=== PATIENT | female | born 1990 ===

== ENCOUNTER 2018-07-11 13:18 | Inpatient (IN) | payer MEDICAID, OTHER ==
[2018-07-11] MEDS ORDERED: Sodium Chloride 0.9% 1,000 ML IV SCH (14:30)
[2018-07-11] MEDS ORDERED: Sodium Chloride 0.9% 1,000 ML ONE (14:37)
[2018-07-11 14:45] LABS: BASO % 0.3 % (0.0-2.0); EOS # 0.1 K/uL (0.0-0.7); EOS % 1.9 % (0.0-4.0); HEMOGLOBIN 13.3 g/dL (11.0-16.0); LYMPH % 28.3 % (20.0-40.0); MEAN CORPUSCULAR HEMOGLOBIN 28.1 pg (27.0-31.0); MEAN CORPUSCULAR HGB CONC 33.8 g/dL (33.0-37.0); MEAN PLATELET VOLUME 7.4 fL (7.2-11.7); MONO # 0.4 K/uL (0.0-0.8); MONO % 6.4 % (0.0-10.0); NEUT # 4.4 K/uL (1.8-7.0); NEUT % 63.1 % (50.0-75.0); RBC 4.73 Mil/uL (3.80-5.20); RED CELL DISTRIBUTION WIDTH 12.8 % (11.5-14.5); WHITE BLOOD COUNT 6.9 K/uL (4.8-10.8)
[2018-07-11 14:59] LABS: URINE BILIRUBIN NEGATIVE (NEGATIVE); URINE BLOOD 2+ (NEGATIVE); URINE CLARITY Clear (Clear); URINE COLOR Yellow (YELLOW); URINE GLUCOSE (UA) NORMAL (Normal); URINE LEUKOCYTE ESTERASE TRACE Leu/uL (Negative); URINE PROTEIN NEGATIVE (NEGATIVE); URINE UROBILINOGEN NORMAL mg/dL (0.2-1.0)
[2018-07-11 15:00] LABS: INR 1.2; PROTHROMBIN TIME 12.7 SECONDS (9.7-12.2)
[2018-07-11 15:06] LABS: ALB/GLOB RATIO 1.4 (1.0-2.1); ALT/SGPT 696 U/L (9-52); BLOOD UREA NITROGEN 11 mg/dL (7-17); CALCIUM 9.9 mg/dl (8.6-10.4); GFR NON-AFRICAN AMERICAN > 60; LIPASE 146 U/L (23-300)
[2018-07-11 15:13] LABS: SQUAMOUS EPITHIAL 2 /hpf (0-5)
[2018-07-11 15:33] LABS: AST/SGOT 897 U/L (14-36)
--- NOTE | 2018-07-11 16:33 | US ---
HISTORY: epigastric pain COMPARISON: None available TECHNIQUE: Sonographic evaluation of the abdomen. FINDINGS: LIVER: Measures 12.6 cm in sagittal dimension and appears within normal limits of size, shape, and echotexture. No focal hepatic mass identified. The main portal vein appears patent with normal directional flow. No intrahepatic bile duct dilatation. GALLBLADDER: No gallstones. No gallbladder wall thickening. Negative sonographic Garcia's sign as assessed by the cloth bleaching supervisor. COMMON BILE DUCT: Measures 5 mm. PANCREAS: Not well visualized. RIGHT KIDNEY: Measures 10.1 x 4.0 x 4.3 cm. No obstructing calculus or hydronephrosis identified. LEFT KIDNEY: Measures 9.4 x 4.6 x 4.7 cm. No obstructing calculus or hydronephrosis identified. SPLEEN: Measures approximately 9.7 cm. AORTA: Limited views appear unremarkable. IVC: Limited views appear unremarkable. OTHER FINDINGS: None. IMPRESSION: Cholelithiasis. Gallbladder sludge. Otherwise unremarkable study as above.
--- NOTE | 2018-07-11 16:55 | C.PDOC ---
Time Seen by Provider: 07/11/18 14:07 Chief Complaint (Nursing): Abdominal Pain Past Medical History Vital Signs: Last Vital Signs Temp 98.2 F 07/11/18 13:35 Pulse 86 07/11/18 13:35 Resp 18 07/11/18 13:35 BP 115/76 07/11/18 13:35 Pulse Ox 98 07/11/18 13:35 - Medical History PMH: Asthma, Migraine Surgical History: Appendectomy, Tonsillectomy Family History: States: Unknown Family Hx - Social History Hx Alcohol Use: Yes Hx Substance Use: No - Immunization History Hx Tetanus Toxoid Vaccination: No Hx Influenza Vaccination: No Hx Pneumococcal Vaccination: No ED Course And Treatment - Laboratory Results Result Diagrams: 07/11/18 14:40 07/11/18 14:40 O2 Sat by Pulse Oximetry: 98 Disposition - Disposition
--- NOTE | 2018-07-11 17:13 | C.PDOC ---
History Of Present Illness 28 y/o female, w/PMHx of migraines and asthma, presents to the ER complaining of intermittent epigastric abdominal pain x 3 months which has become progressively worse over the past 1 month. Patient notes that the pain radiates throughout the abdomen and the back, the pain is worse with urination.She had multiple episodes of nom bilious non bloody vomiting. Patient states that she saw her PMD 1 month ago who prescribed her Carafate without relief. Patient reports that she has also taken OTC Antacids with no relief. She notes that she has poor appetite, unintentional weight loss, and chills, and lightheadedness. PMD: Josh Oliva Time Seen by Provider: 07/11/18 14:07 Chief Complaint (Nursing): Abdominal Pain History Per: Patient History/Exam Limitations: no limitations Onset/Duration Of Symptoms: Days Current Symptoms Are (Timing): Still Present Severity: Moderate Past Medical History Reviewed: Historical Data, Nursing Documentation, Vital Signs Vital Signs: Last Vital Signs Temp 98.2 F 07/11/18 20:57 Pulse 54 L 07/11/18 20:57 Resp 16 07/11/18 20:57 BP 120/75 07/11/18 20:57 Pulse Ox 98 07/11/18 22:49 - Medical History PMH: Asthma, Migraine Surgical History: Appendectomy, Tonsillectomy Family History: States: Hypertension, Other Other Family History: Gallbladder disease - Social History Hx Alcohol Use: Yes (occasional) Hx Substance Use: No - Immunization History Hx Tetanus Toxoid Vaccination: No Hx Influenza Vaccination: No Hx Pneumococcal Vaccination: No Review Of Systems Except As Marked, All Systems Reviewed And Found Negative. Constitutional: Positive for: Chills, Weight loss. Negative for: Fever Gastrointestinal: Positive for: Abdominal Pain. Negative for: Nausea, Vomiting Physical Exam - Physical Exam Appears: Non-toxic, Other (mild pain) Skin: Warm, Dry, Other (pallor) Head: Atraumatic, Normacephalic Eye(s): bilateral: Normal Inspection Nose: Normal Oral Mucosa: Other (tacky) Throat: No Erythema, No Exudate Neck: Normal ROM, Supple Lymphatic: No Adenopathy Chest: Symmetrical Cardiovascular: Rhythm Regular, No Murmur Respiratory: Normal Breath Sounds, No Rales, No Rhonchi, No Wheezing Gastrointestinal/Abdominal: Soft, Tenderness (epigastric tenderness), No Mass, No Distention, No Guarding, No Rebound Back: CVA Tenderness (right-sided CVA tenderness) Extremity: Normal ROM, No Capillary Refill Neurological/Psych: Oriented x3, Normal Speech ED Course And Treatment - Laboratory Results Result Diagrams: 07/11/18 14:40 07/11/18 21:26 Interpretation Of Abnormal: Marked derangements in LFTs with elevated bilirubin O2 Sat by Pulse Oximetry: 98 (RA) Pulse Ox Interpretation: Normal Progress Note: Accession No. : [id number]. Patient Name / ID : ELLIE WICK / [id number]. Exam Date : 07/11/2018 15:55:10 ( Approved ). Study Comment : Sex / Age : F / 28Y. Creator : Dunia Jean MD. Dictator : Dunia Jean MD. Molasses Preparer : Applied Biology Professor : Dunia Jean MD. Approver2 : Report Date : 07/11/2018 16:31:55. My Comment : . HISTORY: epigastric pain. COMPARISON: None available. TECHNIQUE: Sonographic evaluation of the abdomen. FINDINGS: LIVER: Measures 12.6 cm in sagittal dimension and appears within normal limits of size, shape, and echotexture. No focal hepatic mass identified. The main portal vein appears patent with normal directional flow. No intrahepatic bile duct dilatation. GALLBLADDER: No gallstones. No gallbladder wall thickening. Negative sonographic Garcia's sign as assessed by the sash finisher. COMMON BILE DUCT: Measures 5 mm. PANCREAS: Not well visualized. RIGHT KIDNEY: Measures 10.1 x 4.0 x 4.3 cm. No obstructing calculus or hydronephrosis identified. LEFT KIDNEY: Measures 9.4 x 4.6 x 4.7 cm. No obstructing calculus or hydronephrosis identified. SPLEEN: Measures approximately 9.7 cm. AORTA: Limited views appear unremarkable. IVC : Limited views appear unremarkable. OTHER FINDINGS: None. IMPRESSION: Cholelithiasis. Gallbladder sludge. Otherwise unremarkable study as above. Medical Decision Making Medical Decision Making: Impression: Abdominal Pain vs. Gastritis vs. Peptic Ulcer Disease vs. gallbladder disease vs reflu vs enteritis Plan: --Labs --UA --CT- Abd & Pelv. --Morphine IV --Zofran IV 1700 DW pt findings On reeval pt continues to have severe pain. MICHEAL GI fellow for Dr Trejo. Will follow inpatient. MICHEAL resident services coordinator for Surgery, will also follow as inpatient. Dr Matamoros Med Service made aware for hospitalization Disposition Counseled Patient/Family Regarding: Studies Performed, Diagnosis - Disposition Disposition: HOSPITALIZED Disposition Time: 17:30 Condition: FAIR - POA Present On Arrival: None - Clinical Impression Clinical Impression: Cholelithiasis, Hyperbilirubinemia, Transaminitis, Abdominal pain - Scribe Statement The provider has reviewed the documentation as recorded by the Scribe Guille Aguayo
[2018-07-11] MEDS ORDERED: Morphine 4 MG/ML VIAL ONE (17:29)
[2018-07-11] MEDS ORDERED: Dextrose 5%/0.9% NS 1,000 ML IV ONE (17:35)
[2018-07-11] MEDS: Dextrose 5%/0.9% NS 1,000 ML IV SCH (17:36)
--- NOTE | 2018-07-11 18:50 | CP.PCM.CON ---
<Mary Ennis - Last Filed: 07/11/18 19:28> History of Present Illness - History of Present Illness History of Present Illness: Surgical team consulted for cholelithiasis 28yo female with history of asthma, migraine, and suspected gastritis, presents with abdominal pain in epigastrium. Patient states that she was showering when she began to experience severe epigastric abdominal pain radiating to the back. She describes the back pain as feeling like it is on fire. Three months ago she began to experience abdominal pain and saw her primary physician who suspected gastritis, due to a family history of gastritis. She was advised to take antacids which helped for a brief time, but then became ineffective. She then received a script for sucralfate from her physician and has been taking that for the past month. In the time since she started having abdominal discomfort, she has been having odorous burps and vomiting frequently (nonbloody, nonbillious). She complains of tenderness in her chest that "feels like it is bruised" from her vomiting. In this episode, she has been feeling nauseous, but has not vomited. Her symptoms used to occur after fatty meals, so (as directed by her physician) she stopped eating those foods, but in the past month she has been experiencing this abdominal pain every other day. Patient admits to chills , feeling bloated, nausea, burping, pain on deep inspiration, chronic urinary frequency, as well as leg weakness when her back pain comes on. She denies fever , chest pain, dyspnea. Abd US: Cholelithiasis and sludge, CBD of 5mm PMH: Asthma, migraine PSH: tonsilectomy, appendicitis Family Hx: Gallstones, HTN, gastritis, breast cancer Meds: Sucralfate, zantac, TUMs Allergies: seasonal Review of Systems - Review of Systems All systems: reviewed and no additional remarkable complaints except (As per HPI ) Past Patient History - Past Social History Smoking Status: Never Smoked - PULMONARY Hx Asthma: Yes - NEUROLOGICAL Hx Migraine: Yes - PSYCHIATRIC Hx Substance Use: No - SURGICAL HISTORY Hx Appendectomy: Yes Hx Tonsillectomy: Yes - ANESTHESIA Hx Anesthesia: Yes Hx Anesthesia Reactions: No Meds Allergies/Adverse Reactions: Allergies Allergy/AdvReac Type Severity Reaction Status Date / Time No Known Allergies Allergy Verified 09/12/16 03:44 - Medications Medications: Current Medications Sodium Chloride (Sodium Chloride 0.9%) 1,000 mls @ 100 mls/hr IV .Q10H [facility] Last Admin: 07/11/18 14:55 Dose: 100 mls/hr Dextrose/Sodium Chloride (Dextrose 5%/0.9% Ns 1000 Ml) 1,000 mls @ 150 mls/hr IV .Q6H40M [facility] Last Admin: 07/11/18 17:36 Dose: 150 mls/hr Physical Exam - Constitutional Appears: No Acute Distress - Head Exam Head Exam: ATRAUMATIC, NORMAL INSPECTION, NORMOCEPHALIC - Eye Exam Eye Exam: Normal appearance Additional comments: No scleral icterus - Respiratory Exam Respiratory Exam: Clear to Auscultation Bilateral, NORMAL BREATHING PATTERN. absent: Rhonchi, Wheezes, Stridor - Cardiovascular Exam Cardiovascular Exam: REGULAR RHYTHM, +S1, +S2 - GI/Abdominal Exam GI & Abdominal Exam: Normal Bowel Sounds, Soft, Tenderness Additional comments: Tenderness on deep palpation with deep inspiration in RUQ Tenderness in LUQ scar from previous appendectomy - Back Exam Back exam: paraspinal tenderness, tenderness - Skin Skin Exam: Dry, Intact, Normal Color, Warm Results - Vital Signs Recent Vital Signs: Last Vital Signs Temp 98.2 F 07/11/18 13:35 Pulse 69 07/11/18 17:16 Resp 20 07/11/18 17:16 BP 134/84 07/11/18 17:16 Pulse Ox 98 07/11/18 17:30 - Labs Result Diagrams: 07/11/18 14:40 07/11/18 14:40 Labs: Laboratory Results - last 24 hr 07/11/18 07/11/18 07/11/18 14:40 14:40 14:40 WBC 6.9 RBC 4.73 Hgb 13.3 Hct 39.3 MCV 83.0 MCH 28.1 MCHC 33.8 RDW 12.8 Plt Count 377 MPV 7.4 Neut % (Auto) 63.1 Lymph % (Auto) 28.3 [place] % (Auto) 6.4 Eos % (Auto) 1.9 Baso % (Auto) 0.3 Neut # (Auto) 4.4 Lymph # (Auto) 2.0 [place] # (Auto) 0.4 Eos # (Auto) 0.1 Baso # (Auto) 0.0 PT 12.7 H INR 1.2 APTT 31 Sodium 144 Potassium 3.7 Chloride 101 Carbon Dioxide 29 Anion Gap 18 BUN 11 Creatinine 0.6 L Est GFR ( Amer) > 60 Est GFR (Non-Af Amer) > 60 Random Glucose 95 Calcium 9.9 Total Bilirubin 3.1 H AST 897 H ALT 696 H Alkaline Phosphatase 131 H Lactate Dehydrogenase 2692 H Total Protein 8.5 H Albumin 5.0 Globulin 3.5 Albumin/Globulin Ratio 1.4 Lipase 146 Urine Color Urine Clarity Urine pH Ur Specific [place] Urine Protein Urine Glucose (UA) Urine Ketones Urine Blood Urine Nitrate Urine Bilirubin Urine Urobilinogen Ur Leukocyte Esterase Urine WBC (Auto) Urine RBC (Auto) Ur Squamous Epith Cells 07/11/18 14:48 WBC RBC Hgb Hct MCV MCH MCHC RDW Plt Count MPV Neut % (Auto) Lymph % (Auto) [place] % (Auto) Eos % (Auto) Baso % (Auto) Neut # (Auto) Lymph # (Auto) [place] # (Auto) Eos # (Auto) Baso # (Auto) PT INR APTT Sodium Potassium Chloride Carbon Dioxide Anion Gap BUN Creatinine Est GFR ( Amer) Est GFR (Non-Af Amer) Random Glucose Calcium Total Bilirubin AST ALT Alkaline Phosphatase Lactate Dehydrogenase Total Protein Albumin Globulin Albumin/Globulin Ratio Lipase Urine Color Yellow Urine Clarity Clear Urine pH 7.0 Ur Specific [place] 1.010 Urine Protein Negative Urine Glucose (UA) Normal Urine Ketones Negative Urine Blood 2+ H Urine Nitrate Negative Urine Bilirubin Negative Urine Urobilinogen Normal Ur Leukocyte Esterase Trace Urine WBC (Auto) 2 Urine RBC (Auto) 10 H Ur Squamous Epith Cells 2 Assessment & Plan - Assessment and Plan (Free Text) Assessment: 28yo female with cholelithiasis and possible choledocolithiasis Plan: Monitor LFTs Clear liquid diet IVF Nausea control Pain control Obtain consent for Lap Rosa DVT/GI prophylaxis <Gerald Sena - Last Filed: 07/16/18 13:55> Results - Vital Signs Recent Vital Signs: Last Vital Signs Temp 98.1 F 07/15/18 15:29 Pulse 91 H 07/15/18 15:29 Resp 18 07/15/18 15:29 BP 122/78 07/15/18 15:29 Pulse Ox 100 07/15/18 15:29 - Labs Result Diagrams: 07/15/18 10:38 07/15/18 10:38 Attending/Attestation - Attestation I have personally seen and examined this patient.: Yes I have fully participated in the care of the patient.: Yes I have reviewed all pertinent clinical information: Yes Notes (Text): Pt was seen and examined at bedside Agree with above note and assessment Pt with RUQ pain and nausea Abdomen : soft, tender in RUQ Labs and radiology reviewed Ass: Acute Cholecystitis with Leucocytosis Plan : MRCP GI consult for ERCP Repeat LFTs NPO, IVF IV antibiotics Plan d.w pt in detail Risk and benefit explained in detail.
[2018-07-11 21:52] LABS: ALB/GLOB RATIO 1.5 (1.0-2.1); ALBUMIN 4.1 g/dL (3.5-5.0); ALT/SGPT 592 U/L (9-52); AST/SGOT 585 U/L (14-36); BLOOD UREA NITROGEN 9 mg/dL (7-17); CALCIUM 8.8 mg/dl (8.6-10.4); GFR NON-AFRICAN AMERICAN > 60
--- NOTE | 2018-07-11 23:57 | CP.PCM.HP ---
Past Patient History - Past Social History Smoking Status: Never Smoked - PULMONARY Hx Asthma: Yes - NEUROLOGICAL Hx Migraine: Yes - PSYCHIATRIC Hx Substance Use: No - SURGICAL HISTORY Hx Appendectomy: Yes Hx Tonsillectomy: Yes - ANESTHESIA Hx Anesthesia: Yes Hx Anesthesia Reactions: No Meds Allergies/Adverse Reactions: Allergies Allergy/AdvReac Type Severity Reaction Status Date / Time No Known Allergies Allergy Verified 09/12/16 03:44 Results - Vital Signs Recent Vital Signs: Last Vital Signs Temp 98.2 F 07/11/18 23:28 Pulse 59 L 07/11/18 23:28 Resp 14 07/11/18 23:28 BP 112/72 07/11/18 23:28 Pulse Ox 98 07/11/18 23:28 - Labs Result Diagrams: 07/11/18 14:40 07/11/18 21:26 Labs: Laboratory Results - last 24 hr 07/11/18 07/11/18 07/11/18 14:40 14:40 14:40 WBC 6.9 RBC 4.73 Hgb 13.3 Hct 39.3 MCV 83.0 MCH 28.1 MCHC 33.8 RDW 12.8 Plt Count 377 MPV 7.4 Neut % (Auto) 63.1 Lymph % (Auto) 28.3 [place] % (Auto) 6.4 Eos % (Auto) 1.9 Baso % (Auto) 0.3 Neut # (Auto) 4.4 Lymph # (Auto) 2.0 [place] # (Auto) 0.4 Eos # (Auto) 0.1 Baso # (Auto) 0.0 PT 12.7 H INR 1.2 APTT 31 Sodium 144 Potassium 3.7 Chloride 101 Carbon Dioxide 29 Anion Gap 18 BUN 11 Creatinine 0.6 L Est GFR ( Amer) > 60 Est GFR (Non-Af Amer) > 60 Random Glucose 95 Calcium 9.9 Total Bilirubin 3.1 H AST 897 H ALT 696 H Alkaline Phosphatase 131 H Lactate Dehydrogenase 2692 H Total Protein 8.5 H Albumin 5.0 Globulin 3.5 Albumin/Globulin Ratio 1.4 Lipase 146 Urine Color Urine Clarity Urine pH Ur Specific [place] Urine Protein Urine Glucose (UA) Urine Ketones Urine Blood Urine Nitrate Urine Bilirubin Urine Urobilinogen Ur Leukocyte Esterase Urine WBC (Auto) Urine RBC (Auto) Ur Squamous Epith Cells 07/11/18 07/11/18 14:48 21:26 WBC RBC Hgb Hct MCV MCH MCHC RDW Plt Count MPV Neut % (Auto) Lymph % (Auto) [place] % (Auto) Eos % (Auto) Baso % (Auto) Neut # (Auto) Lymph # (Auto) [place] # (Auto) Eos # (Auto) Baso # (Auto) PT INR APTT Sodium 140 Potassium 3.6 Chloride 106 Carbon Dioxide 25 Anion Gap 13 BUN 9 Creatinine 0.6 L Est GFR ( Amer) > 60 Est GFR (Non-Af Amer) > 60 Random Glucose 83 Calcium 8.8 Total Bilirubin 3.0 H AST 585 H D ALT 592 H Alkaline Phosphatase 135 H Lactate Dehydrogenase Total Protein 6.9 Albumin 4.1 Globulin 2.8 Albumin/Globulin Ratio 1.5 Lipase Urine Color Yellow Urine Clarity Clear Urine pH 7.0 Ur Specific [place] 1.010 Urine Protein Negative Urine Glucose (UA) Normal Urine Ketones Negative Urine Blood 2+ H Urine Nitrate Negative Urine Bilirubin Negative Urine Urobilinogen Normal Ur Leukocyte Esterase Trace Urine WBC (Auto) 2 Urine RBC (Auto) 10 H Ur Squamous Epith Cells 2
[2018-07-12] MEDS: Dextrose 5%/0.9% NS 1,000 ML IV SCH ×4 (05:48→22:23)
[2018-07-12] MEDS ORDERED: metroNIDAZOLE IV 500 mg/100 ml 500 MG/100 ML BAG IVPB SCH (06:00)
--- NOTE | 2018-07-12 07:32 | CP.PCM.PN ---
Subjective - Date & Time of Evaluation Date of Evaluation: 07/12/18 Time of Evaluation: 09:00 - Subjective Subjective: Progress Note for Dr. Luis Matamoros's Service This is a 28 year old female with PMHx of Asthma and Migraines who presents to the ED with 3-4 months of sharp, intermittent epigastric pain, worse with food. Patient saw her PMD who started her on Carafate for most likely gastritis. Patient reports she has changed her diet and tried to avoid triggers such as fatty foods. However 2 days prior to admission, after eating chicken and pasta, patient experienced a very sharp, stabbing epigastric/ RUQ pain that caused her to have 2 nonbilious, non bloody episodes of emesis. Denied fever, chills, chest pain, shortness of breath, d/c, or urinary symptoms. PMHx: Asthma, Migraines PSHx: Denied Meds: Tylenol as needed All: NKDA SHx: Admitted to drinking alcohol socially, denied tobacco, illicit drug use Objective - Vital Signs/Intake and Output Vital Signs (last 24 hours): Temp Pulse Resp BP Pulse Ox 98.1 F 54 L 20 115/74 99 07/12/18 00:05 07/12/18 00:05 07/12/18 00:05 07/12/18 00:05 07/12/18 00:05 Intake and Output: 07/12/18 07/12/18 06:59 18:59 Intake Total 1060 Balance 1060 - Medications Medications: Current Medications Acetaminophen (Tylenol 325mg Tab) 650 mg PO Q6 PRN PRN Reason: Fever >100.4 F Diphenhydramine HCl (Benadryl) 25 mg PO Q6 PRN PRN Reason: Allergy symptoms Enoxaparin Sodium (Lovenox) 40 mg SC DAILY [facility] Hydromorphone HCl (Dilaudid) 0.5 mg IVP Q4H PRN PRN Reason: Pain, moderate (4-7) Dextrose/Sodium Chloride (Dextrose 5%/0.9% Ns 1000 Ml) 1,000 mls @ 150 mls/hr IV .Q6H40M [facility] Last Admin: 07/12/18 05:48 Dose: 150 mls/hr Cefepime HCl 1 gm/ Dextrose 50 mls @ 100 mls/hr IVPB Q12H [facility] PRN Reason: Protocol Last Admin: 07/11/18 22:08 Dose: 100 mls/hr Metronidazole (Flagyl) 500 mg in 100 mls @ 100 mls/hr IVPB Q8H [facility] PRN Reason: Protocol Last Admin: 07/12/18 05:49 Dose: 100 mls/hr Ondansetron HCl (Zofran Inj) 4 mg IVP Q6H PRN PRN Reason: Nausea/Vomiting Pantoprazole Sodium (Protonix Ec Tab) 40 mg PO DAILY [facility] Pneumococcal Polyvalent Vaccine (Pneumovax 23 Vaccine) 0.5 ml IM .ONCE ONE Stop: 07/14/18 11:01 Sucralfate (Carafate Tab) 1 gm PO QID [facility] Last Admin: 07/11/18 23:03 Dose: 1 gm - Labs Labs: 07/11/18 14:40 07/11/18 21:26 PT 12.7 SECONDS (9.7-12.2) H 07/11/18 14:40 INR 1.2 07/11/18 14:40 APTT 31 SECONDS (21-34) 07/11/18 14:40 - Constitutional Appears: No Acute Distress - Head Exam Head Exam: NORMAL INSPECTION, NORMOCEPHALIC - Eye Exam Eye Exam: EOMI, Normal appearance, PERRL - ENT Exam ENT Exam: Mucous Membranes Moist - Neck Exam Neck Exam: Normal Inspection - Respiratory Exam Respiratory Exam: Clear to Ausculation Bilateral, NORMAL BREATHING PATTERN. absent: Decreased Breath Sounds, Wheezes - Cardiovascular Exam Cardiovascular Exam: REGULAR RHYTHM, RRR - GI/Abdominal Exam GI & Abdominal Exam: Soft, Tenderness (RUQ, EPIGASTRIC ), Normal Bowel Sounds - Rectal Exam Rectal Exam: Deferred - Extremities Exam Extremities Exam: Normal Inspection. absent: Pedal Edema, Tenderness - Neurological Exam Neurological Exam: Alert, Awake, CN II-XII Intact, Oriented x3 - Psychiatric Exam Psychiatric exam: Normal Affect, Normal Mood - Skin Skin Exam: Dry, Intact, Normal Color, Warm Assessment and Plan - Assessment and Plan (Free Text) Plan: Symptomatic Cholelithiasis Rule Out Choledocholithiasis --- GI consulted - Dr. Trejo --- Surgery consulted - Dr. Krishna -Imaging: - Abdominal US: CBD Measures 5 mm. Cholelithiasis. Gallbladder sludge. - MRCP - pending Transaminitis Elevated T. Bili - Likely 2/2 to passing stone - Downtrending - Hepatitis, HIV panel - negative - Autoimmune panel ordered as per GI Hx Migraines Hx Asthma, mild, controlled - Uses albuterol more during winter months Prophylactic Measures - GI PPX: Protonix - DVT PPX: Lovenox, SCDs - CLD for now All orders and management as per Dr. Luis Matamoros Disposition: Pending MRCP for GI and Surgery reccs. -- Yoselin Bhatia DO, PGY2
[2018-07-12 08:31] LABS: BASO % 0.2 % (0.0-2.0); EOS # 0.4 K/uL (0.0-0.7); EOS % 6.2 % (0.0-4.0); HEMOGLOBIN 11.7 g/dL (11.0-16.0); LYMPH # 2.6 K/uL (1.0-4.3); MEAN CELL VOLUME 84.2 fL (81.0-99.0); MEAN CORPUSCULAR HEMOGLOBIN 28.3 pg (27.0-31.0); MEAN CORPUSCULAR HGB CONC 33.6 g/dL (33.0-37.0); MEAN PLATELET VOLUME 7.7 fL (7.2-11.7); MONO # 0.4 K/uL (0.0-0.8); MONO % 6.4 % (0.0-10.0); NEUT # 2.7 K/uL (1.8-7.0); NEUT % 44.2 % (50.0-75.0); NRBC % 0.1 % (0.0-2.0); RBC 4.13 Mil/uL (3.80-5.20); RED CELL DISTRIBUTION WIDTH 12.8 % (11.5-14.5)
[2018-07-12 08:49] LABS: ACETAMINOPHEN < 10.0 ug/mL (10.0-30.0); IRON 138 ug/dL (37-170); SALICYLATE < 1.0 mg/dL 1
[2018-07-12 08:54] LABS: INR 1.1; PROTHROMBIN TIME 12.2 SECONDS (9.7-12.2)
[2018-07-12 09:00] LABS: % IRON SATURATION 41 (20-55); TOTAL IRON BINDING CAPACITY 334 ug/dL (250-450)
[2018-07-12 09:05] LABS: ALB/GLOB RATIO 1.3 (1.0-2.1); ALBUMIN 3.9 g/dL (3.5-5.0); ALT/SGPT 464 U/L (9-52); AST/SGOT 281 U/L (14-36); BLOOD UREA NITROGEN 6 mg/dL (7-17); CALCIUM 8.5 mg/dl (8.6-10.4); GFR NON-AFRICAN AMERICAN > 60
[2018-07-12 09:07] LABS: IMMUNOGLOBULIN A 236.8 mg/dL (70.0-400.0); IMMUNOGLOBULIN G 1191.5 mg/dL (700.0-1600.0); IMMUNOGLOBULIN M 114.7 mg/dL (40.0-230.0)
[2018-07-12 09:32] LABS: ALPHA FETO PROTEIN 1.3 ng/mL (0.0-7.5)
[2018-07-12 09:54] LABS: ALB/GLOB RATIO 1.5 (1.0-2.1); ALBUMIN 4.2 g/dL (3.5-5.0); ALT/SGPT 481 U/L (9-52); AST/SGOT 288 U/L (14-36); BILIRUBIN,DIRECT 0.6 mg/dL (0.0-0.4); BLOOD UREA NITROGEN 7 mg/dL (7-17); CALCIUM 8.7 mg/dl (8.6-10.4); GAMMA GLUTAMYL TRANSPEPTIDASE 248 U/L (8-78); GFR NON-AFRICAN AMERICAN > 60
[2018-07-12] MEDS ORDERED: Saccharomyces Boulardi 250 mg Cap PO SCH (10:00)
--- NOTE | 2018-07-12 10:08 | CP.PCM.CON ---
<Dayana Felder - Last Filed: 07/12/18 09:54> History of Present Illness - History of Present Illness History of Present Illness: Gastroenterology Fellow/PGY6 Consult Note 28 year old female with PMH of Asthma and Migraines presenting with abdominal pain. Patient notes progressive postprandial onset at 30minutes to 2 hours of constant, mid-back pain to epigastrium lasting 30minutes to one hour for the last three months despite use of Carafate QID for the last one month and Tums with every meal for the last two months. No change in discomfort despite change in dietary habits to bland diet with avoidance of fatty and acidic foods. Notes significant worsening of symptoms after excess alcoholic intake two weeks ago averaging at least six beers and six mixed liquor drinks. Associated two food vomitus episodes (last occurrence this past Tuesday and once a week prior), bloating, heartburn, acid reflux, belching, and loss of appetite leading to a 15 -20 pound unintentional weight loss. She notes sudden worsening of postprandial pain (pain scale 10/10) tuesday evening after consuming chicken with pasta with associated chills and sweats. At present, notes resolved pain that she relates to being in fasting state on morning evaluation. Denies hematemesis, diarrhea, melena, hematochezia, confusion, pruritis, leg swelling, abdominal distension, yellow of skin, easy bruising, recent travel/antibiotics, sick contacts, or high -risk behaviors. Admits to tylenol 650mg once a week for migraine history. Denies NSAIDs use. Notes baseline constipation of 1-2 small, hard stools with straining and no prior fiber/laxative use. No prior EGD or colonoscopy. Family History- denies gallbladder disease, cirrhosis, liver cancer, stomach cancer, colon cancer Social History- social alcohol use with social gatherings, denies tobacco or illicit drug use Surgical History- appendectomy, tonsillectomy Review of Systems - Review of Systems Review of Systems: 12-point review of systems negative except for as above Past Patient History - Past Social History Smoking Status: Never Smoked - PULMONARY Hx Asthma: Yes - NEUROLOGICAL Hx Migraine: Yes - PSYCHIATRIC Hx Substance Use: No - SURGICAL HISTORY Hx Appendectomy: Yes Hx Tonsillectomy: Yes - ANESTHESIA Hx Anesthesia: Yes Hx Anesthesia Reactions: No Meds Allergies/Adverse Reactions: Allergies Allergy/AdvReac Type Severity Reaction Status Date / Time No Known Allergies Allergy Verified 09/12/16 03:44 - Medications Medications: Current Medications Acetaminophen (Tylenol 325mg Tab) 650 mg PO Q6 PRN PRN Reason: Fever >100.4 F Enoxaparin Sodium (Lovenox) 40 mg SC DAILY [facility] Hydromorphone HCl (Dilaudid) 0.5 mg IVP Q4H PRN PRN Reason: Pain, moderate (4-7) Dextrose/Sodium Chloride (Dextrose 5%/0.9% Ns 1000 Ml) 1,000 mls @ 150 mls/hr IV .Q6H40M [facility] Last Admin: 07/12/18 05:48 Dose: 150 mls/hr Ondansetron HCl (Zofran Inj) 4 mg IVP Q6H PRN PRN Reason: Nausea/Vomiting Pantoprazole Sodium (Protonix Ec Tab) 40 mg PO DAILY [facility] Pneumococcal Polyvalent Vaccine (Pneumovax 23 Vaccine) 0.5 ml IM .ONCE ONE Stop: 07/14/18 11:01 Physical Exam - Constitutional Appears: Non-toxic, No Acute Distress - Head Exam Head Exam: ATRAUMATIC, NORMOCEPHALIC - Eye Exam Eye Exam: EOMI, PERRL. absent: Scleral icterus Pupil Exam: PERRL. absent: Miosis, Mydriatic - ENT Exam ENT Exam: Mucous Membranes Moist, Normal Oropharynx - Neck Exam Neck exam: Positive for: Full Rom, Normal Inspection - Respiratory Exam Respiratory Exam: Clear to Auscultation Bilateral. absent: Rales, Rhonchi, Wheezes - Cardiovascular Exam Cardiovascular Exam: RRR, +S1, +S2. absent: Gallop, Rubs - GI/Abdominal Exam GI & Abdominal Exam: Normal Bowel Sounds, Soft. absent: Distended, Firm, Guarding, Organomegaly, Rebound, Rigid, Tenderness - Extremities Exam Extremities exam: Positive for: normal inspection. Negative for: pedal edema - Neurological Exam Neurological exam: Alert, Oriented x3 - Psychiatric Exam Psychiatric exam: Normal Affect, Normal Mood - Skin Skin Exam: Dry, Intact, Normal Color, Warm Results - Vital Signs Recent Vital Signs: Last Vital Signs Temp 97.7 F 07/12/18 07:00 Pulse 68 07/12/18 07:00 Resp 20 07/12/18 07:00 BP 107/72 07/12/18 07:00 Pulse Ox 99 07/12/18 07:00 - Labs Result Diagrams: 07/12/18 08:24 07/12/18 08:16 Labs: Laboratory Results - last 24 hr 07/11/18 07/11/18 07/11/18 14:40 14:40 14:40 WBC 6.9 RBC 4.73 Hgb 13.3 Hct 39.3 MCV 83.0 MCH 28.1 MCHC 33.8 RDW 12.8 Plt Count 377 MPV 7.4 Neut % (Auto) 63.1 Lymph % (Auto) 28.3 [place] % (Auto) 6.4 Eos % (Auto) 1.9 Baso % (Auto) 0.3 Neut # (Auto) 4.4 Lymph # (Auto) 2.0 [place] # (Auto) 0.4 Eos # (Auto) 0.1 Baso # (Auto) 0.0 PT 12.7 H INR 1.2 APTT 31 Sodium 144 Potassium 3.7 Chloride 101 Carbon Dioxide 29 Anion Gap 18 BUN 11 Creatinine 0.6 L Est GFR ( Amer) > 60 Est GFR (Non-Af Amer) > 60 Random Glucose 95 Calcium 9.9 Phosphorus Magnesium Iron TIBC % Saturation Total Bilirubin 3.1 H Direct Bilirubin GGT AST 897 H ALT 696 H Alkaline Phosphatase 131 H Lactate Dehydrogenase 2692 H Total Protein 8.5 H Albumin 5.0 Globulin 3.5 Albumin/Globulin Ratio 1.4 Lipase 146 Alpha Fetoprotein Urine Color Urine Clarity Urine pH Ur Specific [place] Urine Protein Urine Glucose (UA) Urine Ketones Urine Blood Urine Nitrate Urine Bilirubin Urine Urobilinogen Ur Leukocyte Esterase Urine WBC (Auto) Urine RBC (Auto) Ur Squamous Epith Cells Salicylates Acetaminophen Alcohol, Quantitative IgG IgA IgM 07/11/18 07/11/18 07/12/18 14:48 21:26 08:16 WBC RBC Hgb Hct MCV MCH MCHC RDW Plt Count MPV Neut % (Auto) Lymph % (Auto) [place] % (Auto) Eos % (Auto) Baso % (Auto) Neut # (Auto) Lymph # (Auto) [place] # (Auto) Eos # (Auto) Baso # (Auto) PT 12.2 INR 1.1 APTT Sodium 140 Potassium 3.6 Chloride 106 Carbon Dioxide 25 Anion Gap 13 BUN 9 Creatinine 0.6 L Est GFR ( Amer) > 60 Est GFR (Non-Af Amer) > 60 Random Glucose 83 Calcium 8.8 Phosphorus Magnesium Iron TIBC % Saturation Total Bilirubin 3.0 H Direct Bilirubin GGT AST 585 H D ALT 592 H Alkaline Phosphatase 135 H Lactate Dehydrogenase Total Protein 6.9 Albumin 4.1 Globulin 2.8 Albumin/Globulin Ratio 1.5 Lipase Alpha Fetoprotein Urine Color Yellow Urine Clarity Clear Urine pH 7.0 Ur Specific [place] 1.010 Urine Protein Negative Urine Glucose (UA) Normal Urine Ketones Negative Urine Blood 2+ H Urine Nitrate Negative Urine Bilirubin Negative Urine Urobilinogen Normal Ur Leukocyte Esterase Trace Urine WBC (Auto) 2 Urine RBC (Auto) 10 H Ur Squamous Epith Cells 2 Salicylates Acetaminophen Alcohol, Quantitative IgG IgA IgM 07/12/18 07/12/18 07/12/18 08:16 08:16 08:16 WBC RBC Hgb Hct MCV MCH MCHC RDW Plt Count MPV Neut % (Auto) Lymph % (Auto) [place] % (Auto) Eos % (Auto) Baso % (Auto) Neut # (Auto) Lymph # (Auto) [place] # (Auto) Eos # (Auto) Baso # (Auto) PT INR APTT Sodium 141 Potassium 3.8 Chloride 105 Carbon Dioxide 24 Anion Gap 16 BUN 7 Creatinine 0.5 L Est GFR ( Amer) > 60 Est GFR (Non-Af Amer) > 60 Random Glucose 86 Calcium 8.7 Phosphorus 3.6 Magnesium 1.9 Iron 138 TIBC 334 % Saturation 41 Total Bilirubin 1.8 H Direct Bilirubin 0.6 H GGT 248 H AST 288 H D ALT 481 H Alkaline Phosphatase 131 H Lactate Dehydrogenase Total Protein 7.0 Albumin 4.2 Globulin 2.8 Albumin/Globulin Ratio 1.5 Lipase Alpha Fetoprotein 1.3 Urine Color Urine Clarity Urine pH Ur Specific [place] Urine Protein Urine Glucose (UA) Urine Ketones Urine Blood Urine Nitrate Urine Bilirubin Urine Urobilinogen Ur Leukocyte Esterase Urine WBC (Auto) Urine RBC (Auto) Ur Squamous Epith Cells Salicylates < 1.0 Acetaminophen < 10.0 L Alcohol, Quantitative IgG 1191.5 IgA 236.8 IgM 114.7 07/12/18 07/12/18 08:16 08:24 WBC 6.0 RBC 4.13 Hgb 11.7 Hct 34.8 MCV 84.2 MCH 28.3 MCHC 33.6 RDW 12.8 Plt Count 325 MPV 7.7 Neut % (Auto) 44.2 L Lymph % (Auto) 43.0 H [place] % (Auto) 6.4 Eos % (Auto) 6.2 H Baso % (Auto) 0.2 Neut # (Auto) 2.7 Lymph # (Auto) 2.6 [place] # (Auto) 0.4 Eos # (Auto) 0.4 Baso # (Auto) 0.0 PT INR APTT Sodium 141 Potassium 3.6 Chloride 106 Carbon Dioxide 27 Anion Gap 12 BUN 6 L Creatinine 0.5 L Est GFR ( Amer) > 60 Est GFR (Non-Af Amer) > 60 Random Glucose 82 Calcium 8.5 L Phosphorus Magnesium Iron TIBC % Saturation Total Bilirubin 1.6 H Direct Bilirubin GGT AST 281 H ALT 464 H Alkaline Phosphatase 125 Lactate Dehydrogenase Total Protein 6.8 Albumin 3.9 Globulin 3.0 Albumin/Globulin Ratio 1.3 Lipase Alpha Fetoprotein Urine Color Urine Clarity Urine pH Ur Specific [place] Urine Protein Urine Glucose (UA) Urine Ketones Urine Blood Urine Nitrate Urine Bilirubin Urine Urobilinogen Ur Leukocyte Esterase Urine WBC (Auto) Urine RBC (Auto) Ur Squamous Epith Cells Salicylates Acetaminophen Alcohol, Quantitative < 10 IgG IgA IgM Assessment & Plan - Assessment and Plan (Free Text) Assessment: 28 year old female with PMH of Asthma and Migraines presenting with abdominal pain. Active treatment of transaminitis in setting of cholelithiasis on ultrasound. No prior EGD or colonoscopy. Plan: -rule out choledocholithiasis -ordered MRCP w/o contrast -CBD 5mm on U/S -LFTs trending down, likely passed a stone -LFT workup ordered to document ruled out other underlying pathology -on clear liquid diet -supportive care- antiemetics, pain control -surgery managing- follow up recommendation -further recommendation after MRCP <Robert Trejo Y - Last Filed: 07/12/18 12:39> Meds - Medications Medications: Current Medications Acetaminophen (Tylenol 325mg Tab) 650 mg PO Q6 PRN PRN Reason: Fever >100.4 F Enoxaparin Sodium (Lovenox) 40 mg SC DAILY [facility] Last Admin: 07/12/18 10:39 Dose: 40 mg Hydromorphone HCl (Dilaudid) 0.5 mg IVP Q4H PRN PRN Reason: Pain, moderate (4-7) Last Admin: 07/12/18 10:40 Dose: 0.5 mg Dextrose/Sodium Chloride (Dextrose 5%/0.9% Ns 1000 Ml) 1,000 mls @ 150 mls/hr IV .Q6H40M [facility] Last Admin: 07/12/18 05:48 Dose: 150 mls/hr Ondansetron HCl (Zofran Inj) 4 mg IVP Q6H PRN PRN Reason: Nausea/Vomiting Pantoprazole Sodium (Protonix Ec Tab) 40 mg PO DAILY [facility] Last Admin: 07/12/18 10:40 Dose: Not Given Pneumococcal Polyvalent Vaccine (Pneumovax 23 Vaccine) 0.5 ml IM .ONCE ONE Stop: 07/14/18 11:01 Results - Vital Signs Recent Vital Signs: Last Vital Signs Temp 97.7 F 07/12/18 07:00 Pulse 68 07/12/18 07:00 Resp 20 07/12/18 07:00 BP 107/72 07/12/18 07:00 Pulse Ox 99 07/12/18 07:00 - Labs Result Diagrams: 07/12/18 08:24 07/12/18 08:16 Labs: Laboratory Results - last 24 hr 07/11/18 07/11/18 07/11/18 14:40 14:40 14:40 WBC 6.9 RBC 4.73 Hgb 13.3 Hct 39.3 MCV 83.0 MCH 28.1 MCHC 33.8 RDW 12.8 Plt Count 377 MPV 7.4 Neut % (Auto) 63.1 Lymph % (Auto) 28.3 [place] % (Auto) 6.4 Eos % (Auto) 1.9 Baso % (Auto) 0.3 Neut # (Auto) 4.4 Lymph # (Auto) 2.0 [place] # (Auto) 0.4 Eos # (Auto) 0.1 Baso # (Auto) 0.0 PT 12.7 H INR 1.2 APTT 31 Sodium 144 Potassium 3.7 Chloride 101 Carbon Dioxide 29 Anion Gap 18 BUN 11 Creatinine 0.6 L Est GFR ( Amer) > 60 Est GFR (Non-Af Amer) > 60 Random Glucose 95 Calcium 9.9 Phosphorus Magnesium Iron TIBC % Saturation Total Bilirubin 3.1 H Direct Bilirubin GGT AST 897 H ALT 696 H Alkaline Phosphatase 131 H Lactate Dehydrogenase 2692 H Total Protein 8.5 H Albumin 5.0 Globulin 3.5 Albumin/Globulin Ratio 1.4 Lipase 146 Alpha Fetoprotein Urine Color Urine Clarity Urine pH Ur Specific [place] Urine Protein Urine Glucose (UA) Urine Ketones Urine Blood Urine Nitrate Urine Bilirubin Urine Urobilinogen Ur Leukocyte Esterase Urine WBC (Auto) Urine RBC (Auto) Ur Squamous Epith Cells Salicylates Acetaminophen Alcohol, Quantitative IgG IgA IgM Hepatitis A IgM Ab Hepatitis A Ab Total Hep Bs Antigen Hep B Core IgM Ab Hepatitis C Antibody 07/11/18 07/11/18 07/12/18 14:48 21:26 08:16 WBC RBC Hgb Hct MCV MCH MCHC RDW Plt Count MPV Neut % (Auto) Lymph % (Auto) [place] % (Auto) Eos % (Auto) Baso % (Auto) Neut # (Auto) Lymph # (Auto) [place] # (Auto) Eos # (Auto) Baso # (Auto) PT 12.2 INR 1.1 APTT Sodium 140 Potassium 3.6 Chloride 106 Carbon Dioxide 25 Anion Gap 13 BUN 9 Creatinine 0.6 L Est GFR ( Amer) > 60 Est GFR (Non-Af Amer) > 60 Random Glucose 83 Calcium 8.8 Phosphorus Magnesium Iron TIBC % Saturation Total Bilirubin 3.0 H Direct Bilirubin GGT AST 585 H D ALT 592 H Alkaline Phosphatase 135 H Lactate Dehydrogenase Total Protein 6.9 Albumin 4.1 Globulin 2.8 Albumin/Globulin Ratio 1.5 Lipase Alpha Fetoprotein Urine Color Yellow Urine Clarity Clear Urine pH 7.0 Ur Specific [place] 1.010 Urine Protein Negative Urine Glucose (UA) Normal Urine Ketones Negative Urine Blood 2+ H Urine Nitrate Negative Urine Bilirubin Negative Urine Urobilinogen Normal Ur Leukocyte Esterase Trace Urine WBC (Auto) 2 Urine RBC (Auto) 10 H Ur Squamous Epith Cells 2 Salicylates Acetaminophen Alcohol, Quantitative IgG IgA IgM Hepatitis A IgM Ab Hepatitis A Ab Total Hep Bs Antigen Hep B Core IgM Ab Hepatitis C Antibody 07/12/18 07/12/18 07/12/18 08:16 08:16 08:16 WBC RBC Hgb Hct MCV MCH MCHC RDW Plt Count MPV Neut % (Auto) Lymph % (Auto) [place] % (Auto) Eos % (Auto) Baso % (Auto) Neut # (Auto) Lymph # (Auto) [place] # (Auto) Eos # (Auto) Baso # (Auto) PT INR APTT Sodium 141 Potassium 3.8 Chloride 105 Carbon Dioxide 24 Anion Gap 16 BUN 7 Creatinine 0.5 L Est GFR ( Amer) > 60 Est GFR (Non-Af Amer) > 60 Random Glucose 86 Calcium 8.7 Phosphorus 3.6 Magnesium 1.9 Iron 138 TIBC 334 % Saturation 41 Total Bilirubin 1.8 H Direct Bilirubin 0.6 H GGT 248 H AST 288 H D ALT 481 H Alkaline Phosphatase 131 H Lactate Dehydrogenase Total Protein 7.0 Albumin 4.2 Globulin 2.8 Albumin/Globulin Ratio 1.5 Lipase Alpha Fetoprotein 1.3 Urine Color Urine Clarity Urine pH Ur Specific [place] Urine Protein Urine Glucose (UA) Urine Ketones Urine Blood Urine Nitrate Urine Bilirubin Urine Urobilinogen Ur Leukocyte Esterase Urine WBC (Auto) Urine RBC (Auto) Ur Squamous Epith Cells Salicylates < 1.0 Acetaminophen < 10.0 L Alcohol, Quantitative IgG IgA IgM Hepatitis A IgM Ab Negative Hepatitis A Ab Total Antibody positive Hep Bs Antigen Negative Hep B Core IgM Ab Negative Hepatitis C Antibody Negative 07/12/18 07/12/18 07/12/18 08:16 08:16 08:24 WBC 6.0 RBC 4.13 Hgb 11.7 Hct 34.8 MCV 84.2 MCH 28.3 MCHC 33.6 RDW 12.8 Plt Count 325 MPV 7.7 Neut % (Auto) 44.2 L Lymph % (Auto) 43.0 H [place] % (Auto) 6.4 Eos % (Auto) 6.2 H Baso % (Auto) 0.2 Neut # (Auto) 2.7 Lymph # (Auto) 2.6 [place] # (Auto) 0.4 Eos # (Auto) 0.4 Baso # (Auto) 0.0 PT INR APTT Sodium 141 Potassium 3.6 Chloride 106 Carbon Dioxide 27 Anion Gap 12 BUN 6 L Creatinine 0.5 L Est GFR ( Amer) > 60 Est GFR (Non-Af Amer) > 60 Random Glucose 82 Calcium 8.5 L Phosphorus Magnesium Iron TIBC % Saturation Total Bilirubin 1.6 H Direct Bilirubin GGT AST 281 H ALT 464 H Alkaline Phosphatase 125 Lactate Dehydrogenase Total Protein 6.8 Albumin 3.9 Globulin 3.0 Albumin/Globulin Ratio 1.3 Lipase Alpha Fetoprotein Urine Color Urine Clarity Urine pH Ur Specific [place] Urine Protein Urine Glucose (UA) Urine Ketones Urine Blood Urine Nitrate Urine Bilirubin Urine Urobilinogen Ur Leukocyte Esterase Urine WBC (Auto) Urine RBC (Auto) Ur Squamous Epith Cells Salicylates Acetaminophen Alcohol, Quantitative < 10 IgG 1191.5 IgA 236.8 IgM 114.7 Hepatitis A IgM Ab Hepatitis A Ab Total Hep Bs Antigen Hep B Core IgM Ab Hepatitis C Antibody Attending/Attestation - Attestation I have personally seen and examined this patient.: Yes I have fully participated in the care of the patient.: Yes I have reviewed all pertinent clinical information: Yes Notes (Text): 07/12/18 12:34 I have seen and examined patient with GI fellow. Agree with above documentation with the following additions. In brief, this is a 28 year old female with history of asthma, migraine headaches who presents to hospital with complaint of progressive abdominal pain. She describes intermittent episodes of abdominal pain that is worse post prandial over the past 3 months, most recent episode was 2 days ago leading to hospital admission. She notes sharp epigastric, 10/10 pain in epigastric region radiating to back with associated chills and nausea. She denies vomiting, diarrhea, rectal bleeding, or change in bowel habits. During this time period she does note a 15 pound unintentional weight loss. No prior endoscopic evaluation. Asthma Migraine headaches Abdominal pain Transaminitis MRCP imaging reviewed by me showing cholelithiasis, GB sludge, normal caliber CBD - Liquid diet as tolerated - LFTs trending down, continue to monitor. Clinical features suggestive of passed gallstone. - Awaiting hepatitis and autoimmune panel results - Follow up surgical recommendations regarding potential cholecystectomy - No further planned GI interventions, will sign off case. Please reconsult as necessary, thank you.
[2018-07-12] MEDS: Enoxaparin 40 mg Syringe SC SCH ×2 (10:30→10:39)
[2018-07-12 10:35] LABS: HEPATITIS B SURFACE AG Negative (NEGATIVE)
[2018-07-12] MEDS: Pantoprazole 40 mg EC Tab PO SCH (10:40)
[2018-07-12] MEDS: HYDROmorphone 0.5 mg/0.5 ml ISec IVP PRN (10:40)
[2018-07-12 10:41] LABS: HEPATITIS A IGM NEGATIVE (NEGATIVE); HEPATITIS B CORE AB NEGATIVE (NEGATIVE)
[2018-07-12 10:52] LABS: HEPATITIS C ANTIBODY NEGATIVE (NEGATIVE)
--- NOTE | 2018-07-12 10:55 | MRI ---
Date of service: 07/12/18 MRCP Indication: Transaminitis Technique: Multiplanar, multisequence MR images of the abdomen were obtained, including heavily T2 weighted MRCP images of the biliary system. Rotating maximum intensity projection images of the biliary system were generated. A total of images were submitted for review. Comparison: None available Findings: Hepatic steatosis. Cholelithiasis. Gallbladder sludge. There is no intrahepatic biliary ductal dilatation. The common bile duct appears within normal limits in caliber measuring approximately 6 mm and tapers distally. The pancreatic duct appears within normal limits of caliber. No filling defects are seen in the common bile duct or pancreatic duct. The noncontrast adrenal glands, kidneys, spleen, and pancreas appear unremarkable. No bulky abdominal lymphadenopathy is seen. No ascites. No acute osseous abnormality is detected. Impression: No filling defects seen within the common bile duct which appears within normal limits of caliber. Cholelithiasis. Gallbladder sludge. Hepatic steatosis.
[2018-07-12 12:29] LABS: HEPATITIS A TOTAL Antibody Positive (NEGATIVE)
--- NOTE | 2018-07-12 17:08 | CP.PCM.PN ---
<Major Victor Humberto - Last Filed: 07/12/18 17:06> Subjective - Date & Time of Evaluation Date of Evaluation: 07/12/18 Time of Evaluation: 17:06 - Subjective Subjective: Gen Sx: Dr Sena Pt S&E. Reports pain is only mildly improved. Still with nausea. Denies f/c, sob, chest pain. MRCP today shows no stones. Objective - Vital Signs/Intake and Output Vital Signs (last 24 hours): Temp Pulse Resp BP Pulse Ox 98 F 60 18 100/63 99 07/12/18 15:50 07/12/18 15:50 07/12/18 16:31 07/12/18 15:50 07/12/18 15:50 Intake and Output: 07/12/18 07/12/18 06:59 18:59 Intake Total 1060 Balance 1060 - Medications Medications: Current Medications Acetaminophen (Tylenol 325mg Tab) 650 mg PO Q6 PRN PRN Reason: Fever >100.4 F Last Admin: 07/12/18 16:21 Dose: 650 mg Enoxaparin Sodium (Lovenox) 40 mg SC DAILY [facility] Last Admin: 07/12/18 10:30 Dose: Not Given Hydromorphone HCl (Dilaudid) 0.5 mg IVP Q4H PRN PRN Reason: Pain, moderate (4-7) Last Admin: 07/12/18 10:40 Dose: 0.5 mg Dextrose/Sodium Chloride (Dextrose 5%/0.9% Ns 1000 Ml) 1,000 mls @ 150 mls/hr IV .Q6H40M [facility] Last Admin: 07/12/18 16:49 Dose: Not Given Ondansetron HCl (Zofran Inj) 4 mg IVP Q6H PRN PRN Reason: Nausea/Vomiting Pantoprazole Sodium (Protonix Ec Tab) 40 mg PO DAILY [facility] Last Admin: 07/12/18 10:40 Dose: Not Given Pneumococcal Polyvalent Vaccine (Pneumovax 23 Vaccine) 0.5 ml IM .ONCE ONE Stop: 07/14/18 11:01 - Labs Labs: 07/12/18 08:24 07/12/18 08:16 PT 12.2 SECONDS (9.7-12.2) 07/12/18 08:16 INR 1.1 07/12/18 08:16 APTT 31 SECONDS (21-34) 07/11/18 14:40 - Constitutional Appears: Non-toxic, No Acute Distress - Respiratory Exam Respiratory Exam: absent: Respiratory Distress - Cardiovascular Exam Cardiovascular Exam: absent: Tachycardia - GI/Abdominal Exam GI & Abdominal Exam: Soft, Tenderness (RUQ). absent: Distended - Extremities Exam Extremities Exam: absent: Pedal Edema - Neurological Exam Neurological Exam: Alert, Awake, Oriented x3 - Psychiatric Exam Psychiatric exam: Normal Affect - Skin Skin Exam: Normal Color, Warm Assessment and Plan - Assessment and Plan (Free Text) Assessment: 28F with cholecystitis Plan: for Lap Rosa on tuesday NPO @ [place] on ok for diet til then d/w Dr Nathen Victor, PGY4 <Gerald Sena - Last Filed: 07/16/18 13:58> Objective - Vital Signs/Intake and Output Vital Signs (last 24 hours): Temp Pulse Resp BP Pulse Ox 98.1 F 91 H 18 122/78 100 07/15/18 15:29 07/15/18 15:29 07/15/18 15:29 07/15/18 15:29 07/15/18 15:29 - Labs Labs: 07/15/18 10:38 07/15/18 10:38 PT 12.2 SECONDS (9.7-12.2) 07/12/18 08:16 INR 1.1 07/12/18 08:16 APTT 31 SECONDS (21-34) 07/11/18 14:40 Attending/Attestation - Attestation I have personally seen and examined this patient.: Yes I have fully participated in the care of the patient.: Yes I have reviewed all pertinent clinical information, including history, physical exam and plan: Yes Notes (Text): Pt was seen and examined at bedside Agree with above note and assessment Pt is improving clinically MRCP is negative LFTs is still high Repeat LFTs in am Possible OR tomorrow for Lap Cholecystectomy c.w current mx Plan d.w pt in detail Risk and benefit explained in detail.
[2018-07-12 20:51] LABS: BARBITURATES, UR NEGATIVE (NEGATIVE); BENZODIAZEPINES, UR NEGATIVE (NEGATIVE); OPIATES, UR NEGATIVE (NEGATIVE); PHENCYCLIDINE, UR NEGATIVE (NEGATIVE)
--- NOTE | 2018-07-12 21:45 | CP.PCM.PN ---
Subjective - Date & Time of Evaluation Date of Evaluation: 07/12/18 Time of Evaluation: 10:45 - Subjective Subjective: clinically same Objective - Vital Signs/Intake and Output Vital Signs (last 24 hours): Temp Pulse Resp BP Pulse Ox 98 F 60 18 100/63 99 07/12/18 15:50 07/12/18 15:50 07/12/18 16:31 07/12/18 15:50 07/12/18 15:50 - Medications Medications: Current Medications Acetaminophen (Tylenol 325mg Tab) 650 mg PO Q6 PRN PRN Reason: Fever >100.4 F Last Admin: 07/12/18 16:21 Dose: 650 mg Enoxaparin Sodium (Lovenox) 40 mg SC DAILY [facility] Last Admin: 07/12/18 10:30 Dose: Not Given Hydromorphone HCl (Dilaudid) 0.5 mg IVP Q4H PRN PRN Reason: Pain, moderate (4-7) Last Admin: 07/12/18 10:40 Dose: 0.5 mg Dextrose/Sodium Chloride (Dextrose 5%/0.9% Ns 1000 Ml) 1,000 mls @ 150 mls/hr IV .Q6H40M [facility] Last Admin: 07/12/18 20:39 Dose: Not Given Cefepime HCl 1 gm/ Dextrose 50 mls @ 100 mls/hr IVPB Q12H [place] PRN Reason: Protocol Last Admin: 07/12/18 20:39 Dose: 100 mls/hr Ondansetron HCl (Zofran Inj) 4 mg IVP Q6H PRN PRN Reason: Nausea/Vomiting Pantoprazole Sodium (Protonix Ec Tab) 40 mg PO DAILY [facility] Last Admin: 07/12/18 10:40 Dose: Not Given Pneumococcal Polyvalent Vaccine (Pneumovax 23 Vaccine) 0.5 ml IM .ONCE ONE Stop: 07/14/18 11:01 - Labs Labs: 07/12/18 08:24 07/12/18 08:16 PT 12.2 SECONDS (9.7-12.2) 07/12/18 08:16 INR 1.1 07/12/18 08:16 APTT 31 SECONDS (21-34) 07/11/18 14:40
[2018-07-13] MEDS: Dextrose 5%/0.9% NS 1,000 ML IV SCH ×2 (02:50→05:12)
--- NOTE | 2018-07-13 07:22 | CP.PCM.PN ---
Subjective - Date & Time of Evaluation Date of Evaluation: 07/13/18 Time of Evaluation: 07:00 - Subjective Subjective: Progress Note for Dr. Luis Matamoros's Service Patient was seen and examined at bedside. Patient reports the pain has improved. Denied fever, chills, headache, chest pain, shortness of breath, abdominal pain, n/v/d/c or urinary complaints. Plan for OR 07/14/18 Objective - Vital Signs/Intake and Output Vital Signs (last 24 hours): Temp Pulse Resp BP Pulse Ox 97.6 F 58 L 20 104/68 97 07/12/18 23:35 07/12/18 23:35 07/12/18 23:35 07/12/18 23:35 07/12/18 23:35 Intake and Output: 07/13/18 07/13/18 06:59 18:59 Intake Total 1350 Balance 1350 - Medications Medications: Current Medications Acetaminophen (Tylenol 325mg Tab) 650 mg PO Q6 PRN PRN Reason: Fever >100.4 F Last Admin: 07/12/18 16:21 Dose: 650 mg Enoxaparin Sodium (Lovenox) 40 mg SC DAILY [facility] Last Admin: 07/12/18 10:30 Dose: Not Given Hydromorphone HCl (Dilaudid) 0.5 mg IVP Q4H PRN PRN Reason: Pain, moderate (4-7) Last Admin: 07/12/18 10:40 Dose: 0.5 mg Cefepime HCl 1 gm/ Dextrose 50 mls @ 100 mls/hr IVPB Q12H [facility] PRN Reason: Protocol Last Admin: 07/12/18 20:39 Dose: 100 mls/hr Ondansetron HCl (Zofran Inj) 4 mg IVP Q6H PRN PRN Reason: Nausea/Vomiting Pantoprazole Sodium (Protonix Ec Tab) 40 mg PO DAILY [facility] Last Admin: 07/12/18 10:40 Dose: Not Given Pneumococcal Polyvalent Vaccine (Pneumovax 23 Vaccine) 0.5 ml IM .ONCE ONE Stop: 07/14/18 11:01 - Labs Labs: 07/12/18 08:24 07/12/18 08:16 PT 12.2 SECONDS (9.7-12.2) 07/12/18 08:16 INR 1.1 07/12/18 08:16 APTT 31 SECONDS (21-34) 07/11/18 14:40 - Additional Findings Additional findings: - Head Exam Head Exam: NORMAL INSPECTION, NORMOCEPHALIC - Eye Exam Eye Exam: EOMI, Normal appearance, PERRL - ENT Exam ENT Exam: Mucous Membranes Moist - Neck Exam Neck Exam: Normal Inspection - Respiratory Exam Respiratory Exam: Clear to Ausculation Bilateral, NORMAL BREATHING PATTERN. absent: Decreased Breath Sounds, Wheezes - Cardiovascular Exam Cardiovascular Exam: REGULAR RHYTHM, RRR - GI/Abdominal Exam GI & Abdominal Exam: Soft, Mild Tenderness (RUQ, EPIGASTRIC ), Normal Bowel Sounds - Rectal Exam Rectal Exam: Deferred - Extremities Exam Extremities Exam: Normal Inspection. absent: Pedal Edema, Tenderness - Neurological Exam Neurological Exam: Alert, Awake, CN II-XII Intact, Oriented x3 - Psychiatric Exam Psychiatric exam: Normal Affect, Normal Mood - Skin Skin Exam: Dry, Intact, Normal Color, Warm Assessment and Plan - Assessment and Plan (Free Text) Plan: Symptomatic Cholelithiasis Ruled Out Choledocholithiasis --- GI consulted - Dr. Trejo --- Surgery consulted - Dr. Krishna -Imaging: - Abdominal US: CBD Measures 5 mm. Cholelithiasis. Gallbladder sludge. - MRCP - no stone obstruction. CBD with normal caliber Management: - Dilaudid, Zofran, Tyleno PRN - Cefepime as per Dr. Luis Matamoros Transaminitis Elevated T. Bili - Likely 2/2 to passing stone - Autoimmune panel ordered as per GI - Hepatitis, HIV panel - negative - Downtrending Hx Migraines Hx Asthma, mild, controlled - Uses albuterol more during winter months Prophylactic Measures - GI PPX: Protonix - DVT PPX: Lovenox (will be held after today's dose), SCDs - FLD for now, NPO tonight for OR tomorrow morning All orders and management as per Dr. Luis Matamoros Disposition: Lap soniya scheduled tomorrow 07/14/18. -- Yoselin Bhatia DO, PGY2
--- NOTE | 2018-07-13 07:27 | CP.PCM.PN ---
<Janie Hood - Last Filed: 07/13/18 07:26> Subjective - Date & Time of Evaluation Date of Evaluation: 07/13/18 Time of Evaluation: 07:26 - Subjective Subjective: General surgery progress note for Dr. Sena-Janie Hood, PGY-2 pt S & E at bedside at 0605 Pt reports ab pain much improved, intermittent. Tolerating liquids. Continues with some nausea. Objective - Vital Signs/Intake and Output Vital Signs (last 24 hours): Temp Pulse Resp BP Pulse Ox 97.6 F 58 L 20 104/68 97 07/12/18 23:35 07/12/18 23:35 07/12/18 23:35 07/12/18 23:35 07/12/18 23:35 Intake and Output: 07/13/18 07/13/18 06:59 18:59 Intake Total 1350 Balance 1350 - Medications Medications: Current Medications Acetaminophen (Tylenol 325mg Tab) 650 mg PO Q6 PRN PRN Reason: Fever >100.4 F Last Admin: 07/12/18 16:21 Dose: 650 mg Enoxaparin Sodium (Lovenox) 40 mg SC DAILY [facility] Last Admin: 07/12/18 10:30 Dose: Not Given Hydromorphone HCl (Dilaudid) 0.5 mg IVP Q4H PRN PRN Reason: Pain, moderate (4-7) Last Admin: 07/12/18 10:40 Dose: 0.5 mg Cefepime HCl 1 gm/ Dextrose 50 mls @ 100 mls/hr IVPB Q12H [facility] PRN Reason: Protocol Last Admin: 07/12/18 20:39 Dose: 100 mls/hr Ondansetron HCl (Zofran Inj) 4 mg IVP Q6H PRN PRN Reason: Nausea/Vomiting Pantoprazole Sodium (Protonix Ec Tab) 40 mg PO DAILY [facility] Last Admin: 07/12/18 10:40 Dose: Not Given Pneumococcal Polyvalent Vaccine (Pneumovax 23 Vaccine) 0.5 ml IM .ONCE ONE Stop: 07/14/18 11:01 - Labs Labs: 07/12/18 08:24 07/12/18 08:16 PT 12.2 SECONDS (9.7-12.2) 07/12/18 08:16 INR 1.1 07/12/18 08:16 APTT 31 SECONDS (21-34) 07/11/18 14:40 - Constitutional Appears: Non-toxic, No Acute Distress - Head Exam Head Exam: ATRAUMATIC, NORMAL INSPECTION, NORMOCEPHALIC - Eye Exam Eye Exam: EOMI, Normal appearance - ENT Exam ENT Exam: Mucous Membranes Moist, Normal Exam - Neck Exam Neck Exam: Full ROM, Normal Inspection - Cardiovascular Exam Cardiovascular Exam: REGULAR RHYTHM, +S1, +S2 - GI/Abdominal Exam GI & Abdominal Exam: Soft. absent: Distended, Firm, Guarding, Rigid, Tenderness - Extremities Exam Extremities Exam: Normal Inspection - Neurological Exam Neurological Exam: Alert, Awake, CN II-XII Intact, Oriented x3 - Psychiatric Exam Psychiatric exam: Normal Affect, Normal Mood - Skin Skin Exam: Dry, Intact, Normal Color, Warm Assessment and Plan - Assessment and Plan (Free Text) Assessment: 28F w/cholecystitis Plan: FU AM labs Plan for OR tomorrow NPO pMN Will Consent Will DW Dr. Nathen Hood, PGY-2 <Gerald Sena B - Last Filed: 07/16/18 14:08> Objective - Vital Signs/Intake and Output Vital Signs (last 24 hours): Temp Pulse Resp BP Pulse Ox 98.1 F 91 H 18 122/78 100 07/15/18 15:29 07/15/18 15:29 07/15/18 15:29 07/15/18 15:29 07/15/18 15:29 - Labs Labs: 07/15/18 10:38 07/15/18 10:38 PT 12.2 SECONDS (9.7-12.2) 07/12/18 08:16 INR 1.1 07/12/18 08:16 APTT 31 SECONDS (21-34) 07/11/18 14:40 Attending/Attestation - Attestation I have personally seen and examined this patient.: Yes I have fully participated in the care of the patient.: Yes I have reviewed all pertinent clinical information, including history, physical exam and plan: Yes Notes (Text): Pt was seen and examined at bedside Agree with above note and assessment Pt is improving clinically LFTs improving OR for Lap/Robotic Cholecystectomy tomorrow Consent IVF, NPO c.w current mx Plan d.w pt in detail Risk and benefit explained in detail.
[2018-07-13 08:10] LABS: CERULOPLASMIN 26 mg/dL (18-53)
[2018-07-13 08:37] LABS: BASO % 0.2 % (0.0-2.0); EOS # 0.4 K/uL (0.0-0.7); EOS % 7.4 % (0.0-4.0); HEMOGLOBIN 12.2 g/dL (11.0-16.0); LYMPH # 2.4 K/uL (1.0-4.3); LYMPH % 44.3 % (20.0-40.0); MEAN CELL VOLUME 83.6 fL (81.0-99.0); MEAN CORPUSCULAR HEMOGLOBIN 27.4 pg (27.0-31.0); MEAN CORPUSCULAR HGB CONC 32.8 g/dL (33.0-37.0); MEAN PLATELET VOLUME 8.5 fL (7.2-11.7); MONO # 0.4 K/uL (0.0-0.8); MONO % 7.5 % (0.0-10.0); NEUT # 2.2 K/uL (1.8-7.0); NEUT % 40.6 % (50.0-75.0); NRBC % 0.2 % (0.0-2.0); RBC 4.46 Mil/uL (3.80-5.20); RED CELL DISTRIBUTION WIDTH 12.9 % (11.5-14.5); WHITE BLOOD COUNT 5.5 K/uL (4.8-10.8)
[2018-07-13 08:55] LABS: ALB/GLOB RATIO 1.3 (1.0-2.1); ALBUMIN 4.1 g/dL (3.5-5.0); ALT/SGPT 341 U/L (9-52); AST/SGOT 156 U/L (14-36); BLOOD UREA NITROGEN 4 mg/dL (7-17); CALCIUM 8.7 mg/dl (8.6-10.4); GFR NON-AFRICAN AMERICAN > 60
[2018-07-13] MEDS: Pantoprazole 40 mg EC Tab PO SCH (09:31)
[2018-07-13] MEDS: Enoxaparin 40 mg Syringe SC SCH ×2 (09:31→09:35)
[2018-07-13] MEDS: HYDROmorphone 0.5 mg/0.5 ml ISec IVP PRN ×2 (10:34→19:57)
--- NOTE | 2018-07-13 10:34 | CP.PCM.PN ---
Subjective - Date & Time of Evaluation Date of Evaluation: 07/13/18 Time of Evaluation: 11:30 - Subjective Subjective: clinically same Objective - Vital Signs/Intake and Output Vital Signs (last 24 hours): Temp Pulse Resp BP Pulse Ox 98.0 F 62 20 96/60 L 96 07/13/18 07:58 07/13/18 07:58 07/13/18 07:58 07/13/18 07:58 07/13/18 07:58 Intake and Output: 07/13/18 07/13/18 06:59 18:59 Intake Total 1350 Balance 1350 - Medications Medications: Current Medications Acetaminophen (Tylenol 325mg Tab) 650 mg PO Q6 PRN PRN Reason: Fever >100.4 F Last Admin: 07/12/18 16:21 Dose: 650 mg Enoxaparin Sodium (Lovenox) 40 mg SC DAILY [facility] Last Admin: 07/13/18 09:35 Dose: Not Given Hydromorphone HCl (Dilaudid) 0.5 mg IVP Q4H PRN PRN Reason: Pain, moderate (4-7) Last Admin: 07/12/18 10:40 Dose: 0.5 mg Cefepime HCl 1 gm/ Dextrose 50 mls @ 100 mls/hr IVPB Q12H [facility] PRN Reason: Protocol Last Admin: 07/13/18 09:35 Dose: 100 mls/hr Ondansetron HCl (Zofran Inj) 4 mg IVP Q6H PRN PRN Reason: Nausea/Vomiting Pantoprazole Sodium (Protonix Ec Tab) 40 mg PO DAILY [facility] Last Admin: 07/13/18 09:31 Dose: 40 mg Pneumococcal Polyvalent Vaccine (Pneumovax 23 Vaccine) 0.5 ml IM .ONCE ONE Stop: 07/14/18 11:01 - Labs Labs: 07/13/18 08:09 07/13/18 08:09 PT 12.2 SECONDS (9.7-12.2) 07/12/18 08:16 INR 1.1 07/12/18 08:16 APTT 31 SECONDS (21-34) 07/11/18 14:40
[2018-07-13] MEDS: Potassium Chloride 20 mEq/15 ml LIQ UD PO SCH ×3 (11:28→18:53)
[2018-07-13] MEDS ORDERED: Potassium Chloride 20 mEq ER Tab PO STA (19:00)
--- NOTE | 2018-07-14 07:25 | CP.PCM.PN ---
Subjective - Date & Time of Evaluation Date of Evaluation: 07/14/18 Time of Evaluation: 07:00 - Subjective Subjective: Progress Note for Dr. Luis Matamoros's Service Patient was seen and examined at bedside. Patient reports the pain is intermittent but well controlled with medication. Denied fever, chills, headache , chest pain, shortness of breath, abdominal pain, n/v/d/c or urinary complaints. Plan for OR today 07/14/18 ~ 12pm Objective - Vital Signs/Intake and Output Vital Signs (last 24 hours): Temp Pulse Resp BP Pulse Ox 98.0 F 61 20 108/68 98 07/14/18 01:00 07/14/18 01:00 07/14/18 01:00 07/14/18 01:00 07/14/18 01:00 Intake and Output: 07/14/18 07/14/18 06:59 18:59 Intake Total 250 Balance 250 - Medications Medications: Current Medications Acetaminophen (Tylenol 325mg Tab) 650 mg PO Q6 PRN PRN Reason: Fever >100.4 F Last Admin: 07/12/18 16:21 Dose: 650 mg Enoxaparin Sodium (Lovenox) 40 mg SC DAILY [facility] Last Admin: 07/13/18 09:35 Dose: Not Given Hydromorphone HCl (Dilaudid) 0.5 mg IVP Q4H PRN PRN Reason: Pain, moderate (4-7) Last Admin: 07/13/18 19:57 Dose: 0.5 mg Cefepime HCl 1 gm/ Dextrose 50 mls @ 100 mls/hr IVPB Q12H [facility] PRN Reason: Protocol Last Admin: 07/13/18 22:40 Dose: 100 mls/hr Ondansetron HCl (Zofran Inj) 4 mg IVP Q6H PRN PRN Reason: Nausea/Vomiting Last Admin: 07/13/18 19:57 Dose: 4 mg Pantoprazole Sodium (Protonix Ec Tab) 40 mg PO DAILY [facility] Last Admin: 07/13/18 09:31 Dose: 40 mg Pneumococcal Polyvalent Vaccine (Pneumovax 23 Vaccine) 0.5 ml IM .ONCE ONE Stop: 07/14/18 11:01 - Labs Labs: 07/13/18 08:09 07/13/18 08:09 PT 12.2 SECONDS (9.7-12.2) 07/12/18 08:16 INR 1.1 07/12/18 08:16 APTT 31 SECONDS (21-34) 07/11/18 14:40 - Additional Findings Additional findings: - Head Exam Head Exam: NORMAL INSPECTION, NORMOCEPHALIC - Eye Exam Eye Exam: EOMI, Normal appearance, PERRL - ENT Exam ENT Exam: Mucous Membranes Moist - Neck Exam Neck Exam: Normal Inspection - Respiratory Exam Respiratory Exam: Clear to Ausculation Bilateral, NORMAL BREATHING PATTERN. absent: Decreased Breath Sounds, Wheezes - Cardiovascular Exam Cardiovascular Exam: REGULAR RHYTHM, RRR - GI/Abdominal Exam GI & Abdominal Exam: Soft, Mild Tenderness (RUQ, EPIGASTRIC ), Normal Bowel Sounds - Rectal Exam Rectal Exam: Deferred - Extremities Exam Extremities Exam: Normal Inspection. absent: Pedal Edema, Tenderness - Neurological Exam Neurological Exam: Alert, Awake, CN II-XII Intact, Oriented x3 - Psychiatric Exam Psychiatric exam: Normal Affect, Normal Mood - Skin Skin Exam: Dry, Intact, Normal Color, Warm Assessment and Plan - Assessment and Plan (Free Text) Plan: Symptomatic Cholelithiasis Ruled Out Choledocholithiasis --- GI consulted - Dr. Trejo --- Surgery consulted - Dr. Krishna -Imaging: - Abdominal US: CBD Measures 5 mm. Cholelithiasis. Gallbladder sludge. - MRCP - no stone obstruction. CBD with normal caliber Management: - Dilaudid, Zofran, Tyleno PRN - Cefepime as per Dr. Luis Matamoros Transaminitis Elevated T. Bili - Likely 2/2 to passing stone - Autoimmune panel ordered as per GI - Hepatitis, HIV panel - negative - Downtrending Hx Asthma, mild, controlled - Uses albuterol more during winter months Hx Migraines Prophylactic Measures - GI PPX: Protonix - DVT PPX: Lovenox (will be held after today's dose), SCDs - NPO for lap soniya today All orders and management as per Dr. Luis Matamoros Disposition: Lap soniya scheduled today 07/14/18 ~ 12pm -- Yoselin Bhatia DO, PGY2
[2018-07-14 08:09] LABS: BASO % 0.5 % (0.0-2.0); EOS # 0.3 K/uL (0.0-0.7); EOS % 4.8 % (0.0-4.0); HEMOGLOBIN 12.7 g/dL (11.0-16.0); LYMPH % 31.9 % (20.0-40.0); MEAN CELL VOLUME 83.2 fL (81.0-99.0); MEAN CORPUSCULAR HEMOGLOBIN 28.1 pg (27.0-31.0); MEAN CORPUSCULAR HGB CONC 33.8 g/dL (33.0-37.0); MEAN PLATELET VOLUME 7.6 fL (7.2-11.7); MONO # 0.5 K/uL (0.0-0.8); MONO % 8.1 % (0.0-10.0); NEUT # 3.4 K/uL (1.8-7.0); NEUT % 54.7 % (50.0-75.0); NRBC % 0.1 % (0.0-2.0); RBC 4.52 Mil/uL (3.80-5.20); RED CELL DISTRIBUTION WIDTH 12.7 % (11.5-14.5); WHITE BLOOD COUNT 6.2 K/uL (4.8-10.8)
[2018-07-14 08:43] LABS: ALB/GLOB RATIO 1.4 (1.0-2.1); ALBUMIN 4.9 g/dL (3.5-5.0); ALT/SGPT 358 U/L (9-52); AST/SGOT 142 U/L (14-36); BLOOD UREA NITROGEN 9 mg/dL (7-17); CALCIUM 9.7 mg/dl (8.6-10.4); GFR NON-AFRICAN AMERICAN > 60
[2018-07-14] MEDS: Pantoprazole 40 mg EC Tab PO SCH (09:30)
[2018-07-14] MEDS ORDERED: Lidocaine Hydrochloride 0 ML INJ ONE (10:52)
[2018-07-14] MEDS ORDERED: Bupivacaine 0.25% 20 ML INJ IJ ONE (10:52)
[2018-07-14] MEDS ORDERED: ceFAZolin 1 gm FROZEN Premix 1 GM/50 ML ML IVPB ONE (10:53)
[2018-07-14] MEDS ORDERED: Pneumococcal 23-Valent Vaccine IM ONE (11:00)
[2018-07-14] MEDS ORDERED: ceFAZolin 1 gm in NS 0 GM/0 ML BAG IVPB ONE (11:46)
[2018-07-14] MEDS ORDERED: Propofol 10 mg/ml Inj (20 ML) ONE (12:28)
[2018-07-14] MEDS ORDERED: Midazolam 2 MG/2 ML VIAL ONE (12:28)
[2018-07-14] MEDS ORDERED: Lidocaine/Epinephrine 1% 1:100000 10 ML IJ ONE (12:41)
[2018-07-14] MEDS ORDERED: Succinylcholine Chloride 20 mg/ml Syr (5 ml) IV ONE (13:17)
[2018-07-14] MEDS ORDERED: Rocuronium 10 mg/ml (5 ml) ONE (13:17)
[2018-07-14] MEDS ORDERED: Neostigmine Methylsulfate 3mg/3ml Syringe IV ONE (13:17)
--- NOTE | 2018-07-14 14:07 | PCM.SURG1 ---
Surgeon's Initial Post Op Note - Surgeon's Notes Surgeon: Dr. Sena Congressional Representative: Dr. Victor PGY4, Dr. العراقي PGY3 Type of Anesthesia: General Endo Pre-Operative Diagnosis: symptomatic cholelithiasis Operative Findings: see operative report Post-Operative Diagnosis: see operative report Operation Performed: robotic cholecystectomy Specimen/Specimens Removed: gallbladder Estimated Blood Loss: EBL {In ML}: 5 Blood Products Given: N/A Drains Used: No Drains Post-Op Condition: Good Date of Surgery/Procedure: 07/14/18 Time of Surgery/Procedure: 14:07
[2018-07-14] MEDS ORDERED: HYDROmorphone 0.5 mg/0.5 ml ISec IVP PRN (14:10)
--- NOTE | 2018-07-14 15:51 | CP.PCM.PN ---
Subjective - Date & Time of Evaluation Date of Evaluation: 07/14/18 Time of Evaluation: 12:15 - Subjective Subjective: clinically same Objective - Vital Signs/Intake and Output Vital Signs (last 24 hours): Temp Pulse Resp BP Pulse Ox 97.1 F L 71 15 132/81 100 07/14/18 14:05 07/14/18 14:30 07/14/18 14:30 07/14/18 14:30 07/14/18 14:30 Intake and Output: 07/14/18 07/14/18 06:59 18:59 Intake Total 250 850 Balance 250 850 - Medications Medications: Current Medications Acetaminophen (Tylenol 325mg Tab) 650 mg PO Q6 PRN PRN Reason: Fever >100.4 F Last Admin: 07/12/18 16:21 Dose: 650 mg Enoxaparin Sodium (Lovenox) 40 mg SC DAILY [facility] Last Admin: 07/13/18 09:35 Dose: Not Given Hydromorphone HCl (Dilaudid) 0.5 mg IVP Q4H PRN PRN Reason: Pain, moderate (4-7) Last Admin: 07/13/18 19:57 Dose: 0.5 mg Hydromorphone HCl (Dilaudid) 0.5 mg IVP Q15M PRN PRN Reason: Pain, severe (8-10) Stop: 07/14/18 16:11 Cefepime HCl 1 gm/ Dextrose 50 mls @ 100 mls/hr IVPB Q12H [facility] PRN Reason: Protocol Last Admin: 07/14/18 09:29 Dose: 100 mls/hr Ondansetron HCl (Zofran Inj) 4 mg IVP Q6H PRN PRN Reason: Nausea/Vomiting Last Admin: 07/13/18 19:57 Dose: 4 mg Ondansetron HCl (Zofran Inj) 4 mg IVP ONCE PRN PRN Reason: Nausea/Vomiting Stop: 07/14/18 16:12 Last Admin: 07/14/18 15:36 Dose: 4 mg Pantoprazole Sodium (Protonix Ec Tab) 40 mg PO DAILY [facility] Last Admin: 07/14/18 09:30 Dose: 40 mg Saccharomyces Boulardii (Florastor) 250 mg PO Q12 [facility] - Labs Labs: 07/14/18 07:40 07/14/18 07:40 PT 12.2 SECONDS (9.7-12.2) 07/12/18 08:16 INR 1.1 07/12/18 08:16 APTT 31 SECONDS (21-34) 07/11/18 14:40 - Constitutional Appears: Well - Head Exam Head Exam: ATRAUMATIC, NORMAL INSPECTION, NORMOCEPHALIC - Eye Exam Eye Exam: EOMI, Normal appearance, PERRL Pupil Exam: NORMAL ACCOMODATION, PERRL - ENT Exam ENT Exam: Mucous Membranes Moist, Normal Exam - Neck Exam Neck Exam: Full ROM, Normal Inspection. absent: Lymphadenopathy - Respiratory Exam Respiratory Exam: Clear to Ausculation Bilateral, NORMAL BREATHING PATTERN - Cardiovascular Exam Cardiovascular Exam: REGULAR RHYTHM, +S1, +S2. absent: Murmur - GI/Abdominal Exam GI & Abdominal Exam: Soft, Tenderness, Diminished Bowel Sounds - Rectal Exam Rectal Exam: Deferred Assessment and Plan (1) Abdominal pain Status: Acute (2) Alcohol intoxication Status: Acute (3) Cholelithiasis Status: Acute (4) Hyperbilirubinemia Status: Acute (5) Transaminitis Status: Acute - Assessment and Plan (Free Text) Plan: Symptomatic Cholelithiasis Ruled Out Choledocholithiasis --- GI consulted - Dr. Trejo --- Surgery consulted - Dr. Krishna -Imaging: - Abdominal US: CBD Measures 5 mm. Cholelithiasis. Gallbladder sludge. - MRCP - no stone obstruction. CBD with normal caliber Management: - Dilaudid, Zofran, Tyleno PRN - Cefepime as per Dr. Luis Matamoros Transaminitis Elevated T. Bili - Likely 2/2 to passing stone - Autoimmune panel ordered as per GI - Hepatitis, HIV panel - negative - Downtrending Hx Asthma, mild, controlled - Uses albuterol more during winter months Hx Migraines Prophylactic Measures - GI PPX: Protonix - DVT PPX: Lovenox (will be held after today's dose), SCDs -
[2018-07-14] MEDS ORDERED: Benzocaine/Menthol (Cepacol) Lozenge PO PRN (17:17)
[2018-07-14] MEDS: Saccharomyces Boulardi 250 mg Cap PO SCH ×2 (18:00→22:24)
[2018-07-14] MEDS: HYDROmorphone 0.5 mg/0.5 ml ISec IVP PRN (19:06)
[2018-07-15] MEDS: HYDROmorphone 0.5 mg/0.5 ml ISec IVP PRN ×2 (04:01→21:12)
[2018-07-15 08:04] VITALS: O2SAT 100
--- NOTE | 2018-07-15 08:20 | CP.PCM.PN ---
<Mary Ennis - Last Filed: 07/15/18 08:16> Subjective - Date & Time of Evaluation Date of Evaluation: 07/15/18 Time of Evaluation: 08:16 - Subjective Subjective: Surgery Pt seen and examined. underwent surgery yesterday and tolerated it. Had an episode of vomiting post op. Denies fever. Pain controlled. TOlerating diet. + OOB, + void. Objective - Vital Signs/Intake and Output Vital Signs (last 24 hours): Temp Pulse Resp BP Pulse Ox 98.2 F 96 H 20 101/67 100 07/15/18 07:00 07/15/18 07:00 07/15/18 07:00 07/15/18 07:00 07/15/18 07:00 Intake and Output: 07/15/18 07/15/18 06:59 18:59 Intake Total 950 Balance 950 - Medications Medications: Current Medications Acetaminophen (Tylenol 325mg Tab) 650 mg PO Q6 PRN PRN Reason: Fever >100.4 F Last Admin: 07/12/18 16:21 Dose: 650 mg Benzocaine/Menthol (Cepacol Sore Throat) 1 esperanza PO Q2 PRN PRN Reason: Sore Throat Enoxaparin Sodium (Lovenox) 40 mg SC DAILY [facility] Last Admin: 07/13/18 09:35 Dose: Not Given Hydromorphone HCl (Dilaudid) 0.5 mg IVP Q4H PRN PRN Reason: Pain, moderate (4-7) Last Admin: 07/15/18 04:01 Dose: 0.5 mg Cefepime HCl 1 gm/ Dextrose 50 mls @ 100 mls/hr IVPB Q12H [facility] PRN Reason: Protocol Last Admin: 07/14/18 20:35 Dose: 100 mls/hr Ondansetron HCl (Zofran Inj) 4 mg IVP Q6H PRN PRN Reason: Nausea/Vomiting Last Admin: 07/14/18 20:15 Dose: 4 mg Pantoprazole Sodium (Protonix Ec Tab) 40 mg PO DAILY [facility] Last Admin: 07/14/18 09:30 Dose: 40 mg Saccharomyces Boulardii (Florastor) 250 mg PO Q12 [facility] Last Admin: 07/14/18 22:24 Dose: Not Given - Labs Labs: 07/14/18 07:40 07/14/18 07:40 PT 12.2 SECONDS (9.7-12.2) 07/12/18 08:16 INR 1.1 07/12/18 08:16 APTT 31 SECONDS (21-34) 07/11/18 14:40 - Constitutional Appears: No Acute Distress - Head Exam Head Exam: ATRAUMATIC, NORMAL INSPECTION, NORMOCEPHALIC - Eye Exam Eye Exam: EOMI, Normal appearance, PERRL Pupil Exam: NORMAL ACCOMODATION, PERRL - ENT Exam ENT Exam: Mucous Membranes Moist, Normal Exam - Neck Exam Neck Exam: Full ROM, Normal Inspection. absent: Lymphadenopathy - Respiratory Exam Respiratory Exam: NORMAL BREATHING PATTERN - Cardiovascular Exam Cardiovascular Exam: REGULAR RHYTHM, +S1, +S2. absent: Murmur - GI/Abdominal Exam GI & Abdominal Exam: Soft, Tenderness, Normal Bowel Sounds. absent: Distended Additional comments: Dressing C/D/I. TTP. - Exam Exam: NORMAL INSPECTION - Extremities Exam Extremities Exam: Full ROM, Normal Capillary Refill, Normal Inspection. absent : Joint Swelling, Pedal Edema - Back Exam Back Exam: NORMAL INSPECTION - Neurological Exam Neurological Exam: Alert, Awake, CN II-XII Intact, Normal Gait, Oriented x3 - Psychiatric Exam Psychiatric exam: Normal Affect, Normal Mood - Skin Skin Exam: Dry, Intact, Normal Color, Warm Assessment and Plan - Assessment and Plan (Free Text) Assessment: POD 1 s/p robotic cholecystectomy -REgular diet -Clear for DC for surgical standpoint with pain meds -Follow up at Dr. Sena's office in 1-2 weeks. No heavy lifting for 1 month -Ok to take shower. Take bandaid off. -Keep steristrips on until they fall off. Will DW Dr. Sena <Gerald Sena - Last Filed: 07/16/18 14:19> Objective - Vital Signs/Intake and Output Vital Signs (last 24 hours): Temp Pulse Resp BP Pulse Ox 98.1 F 91 H 18 122/78 100 07/15/18 15:29 07/15/18 15:29 07/15/18 15:29 07/15/18 15:29 07/15/18 15:29 - Labs Labs: 07/15/18 10:38 07/15/18 10:38 PT 12.2 SECONDS (9.7-12.2) 07/12/18 08:16 INR 1.1 07/12/18 08:16 APTT 31 SECONDS (21-34) 07/11/18 14:40 Attending/Attestation - Attestation I have personally seen and examined this patient.: Yes I have fully participated in the care of the patient.: Yes I have reviewed all pertinent clinical information, including history, physical exam and plan: Yes Notes (Text): Pt was seen and examined at bedside Agree with above note and assessment Pt is improving clinically Can be DC home with Levaquin f.u as out pt Local wound care Plan d.w pt in detail Risk and benefit explained in detail.
[2018-07-15] MEDS: Saccharomyces Boulardi 250 mg Cap PO SCH (10:21)
[2018-07-15] MEDS: Pantoprazole 40 mg EC Tab PO SCH (10:21)
[2018-07-15] MEDS: Enoxaparin 40 mg Syringe SC SCH (10:23)
[2018-07-15 10:43] LABS: HEMOGLOBIN 11.8 g/dL (11.0-16.0); MEAN CELL VOLUME 83.3 fL (81.0-99.0); MEAN CORPUSCULAR HEMOGLOBIN 27.5 pg (27.0-31.0); MEAN CORPUSCULAR HGB CONC 32.9 g/dL (33.0-37.0); MEAN PLATELET VOLUME 7.4 fL (7.2-11.7); RBC 4.3 Mil/uL (3.80-5.20); RED CELL DISTRIBUTION WIDTH 12.8 % (11.5-14.5)
[2018-07-15 10:48] LABS: WHITE BLOOD COUNT 12.8 K/uL (4.8-10.8)
[2018-07-15 11:11] LABS: ALB/GLOB RATIO 1.4 (1.0-2.1); ALBUMIN 4.6 g/dL (3.5-5.0); ALT/SGPT 260 U/L (9-52); AST/SGOT 94 U/L (14-36); BLOOD UREA NITROGEN 10 mg/dL (7-17); CALCIUM 9.1 mg/dl (8.6-10.4); GFR NON-AFRICAN AMERICAN > 60
[2018-07-15 15:32] VITALS: BP 122/78; PULSE 91; RESP 18; TEMP 98.1
--- NOTE | 2018-07-15 16:11 | CP.PCM.PN ---
Subjective - Date & Time of Evaluation Date of Evaluation: 07/15/18 Time of Evaluation: 12:30 - Subjective Subjective: clinically same Objective - Vital Signs/Intake and Output Vital Signs (last 24 hours): Temp Pulse Resp BP Pulse Ox 98.1 F 91 H 18 122/78 100 07/15/18 15:29 07/15/18 15:29 07/15/18 15:29 07/15/18 15:29 07/15/18 15:29 Intake and Output: 07/15/18 07/15/18 06:59 18:59 Intake Total 950 Balance 950 - Medications Medications: Current Medications Acetaminophen (Tylenol 325mg Tab) 650 mg PO Q6 PRN PRN Reason: Fever >100.4 F Last Admin: 07/12/18 16:21 Dose: 650 mg Benzocaine/Menthol (Cepacol Sore Throat) 1 esperanza PO Q2 PRN PRN Reason: Sore Throat Enoxaparin Sodium (Lovenox) 40 mg SC DAILY [facility] Last Admin: 07/15/18 10:23 Dose: Not Given Hydromorphone HCl (Dilaudid) 0.5 mg IVP Q4H PRN PRN Reason: Pain, moderate (4-7) Last Admin: 07/15/18 04:01 Dose: 0.5 mg Cefepime HCl 1 gm/ Dextrose 50 mls @ 100 mls/hr IVPB Q12H [facility] PRN Reason: Protocol Last Admin: 07/15/18 09:30 Dose: 100 mls/hr Ondansetron HCl (Zofran Inj) 4 mg IVP Q6H PRN PRN Reason: Nausea/Vomiting Last Admin: 07/14/18 20:15 Dose: 4 mg Pantoprazole Sodium (Protonix Ec Tab) 40 mg PO DAILY [facility] Last Admin: 07/15/18 10:21 Dose: 40 mg Saccharomyces Boulardii (Florastor) 250 mg PO Q12 [facility] Last Admin: 07/15/18 10:21 Dose: 250 mg - Labs Labs: 07/15/18 10:38 07/15/18 10:38 PT 12.2 SECONDS (9.7-12.2) 07/12/18 08:16 INR 1.1 07/12/18 08:16 APTT 31 SECONDS (21-34) 07/11/18 14:40 - Constitutional Appears: Well - Head Exam Head Exam: ATRAUMATIC, NORMAL INSPECTION, NORMOCEPHALIC - Eye Exam Eye Exam: EOMI, Normal appearance, PERRL Pupil Exam: NORMAL ACCOMODATION, PERRL - ENT Exam ENT Exam: Mucous Membranes Moist, Normal Exam - Neck Exam Neck Exam: Full ROM, Normal Inspection. absent: Lymphadenopathy - Respiratory Exam Respiratory Exam: Decreased Breath Sounds - Cardiovascular Exam Cardiovascular Exam: REGULAR RHYTHM, +S1, +S2 - GI/Abdominal Exam GI & Abdominal Exam: Soft, Diminished Bowel Sounds - Rectal Exam Rectal Exam: Deferred Assessment and Plan - Assessment and Plan (Free Text) Plan: Much better status post surgery IV antibiotic status post Follow-up with PMD in 24-48 hours
--- NOTE | 2018-07-16 23:24 | OP ---
PROCEDURE DATE: 07/14/2018 PREOPERATIVE DIAGNOSES: 1. Acute cholecystitis. 2. Abnormal liver function tests due to passage of common bile duct stone. POSTOPERATIVE DIAGNOSES: 1. Acute on chronic cholecystitis. 2. Cholelithiasis. 3. Abnormal liver function tests. PROCEDURE DONE: 1. Robotic cholecystectomy. 2. Robotic aspiration of distended edematous gallbladder. SURGEON: The procedure was done by Gerald franks MD [employer] APPLICATION SUPERVISOR: Major Victor DO, PGY-4 resident. ANESTHESIA: General endotracheal tube anesthesia. ESTIMATED BLOOD LOSS: Around 10 mL. DRAIN: None. PATHOLOGY: Gallbladder with gallstone was sent to the pathology. COMPLICATIONS: None. INTRAOPERATIVE FINDINGS: The patient had extremely distended thickened edematous gallbladder, and the patient also had changes of acute on chronic cholecystitis. DESCRIPTION OF PROCEDURE: On intraoperative steps, this is a 28-year-old female who was diagnosed with acute cholecystitis. The patient had abnormal LFTs and after MRCP and after the normalization of the LFTs, the patient was consented for the laparoscopic-assisted robotic cholecystectomy, brought to the OR, placed supine on the operating table. After induction of the anesthesia, the abdomen was prepped and draped in usual sterile fashion. A supraumbilical transverse incision was made. After incising the skin, subcutaneous tissue, and the fascia, the robotic camera port was placed. Pneumo was created. Another 3/8-mm port was placed in the upper abdomen. The robot was brought in. Camera arm as well as arm 1 and arm 2 was docked. The gallbladder appeared to be extremely thick, edematous, and distended; and there were changes of acute on chronic cholecystitis. First, aspiration of the gallbladder was done, and the thick bile was sent off the table for the pathology, and after that, the gallbladder was retracted cranially. Calot's triangle dissection was done. Cystic duct and cystic artery were identified. The top down approach was done. The critical view of the safety was also identified, and the cystic duct and common bile duct junction were identified, and cystic duct as well as the cystic artery were clipped at 3 places and cut in between 2 clips nearby gallbladder and gallbladder was dissected free from the gallbladder fossa, taken in an EndoCatch bag, taken out through the umbilical port site, and sent off the table for pathology. There was a proper hemostasis in each and every part of the procedure. The suction irrigation of the gallbladder fossa as well as the perihepatic area was done, and after proper hemostasis, all the ports were taken out under vision. Pneumo was deflated. The robot was undocked. Instrument was taken out before removing the port, and the umbilical port site was closed in 2 layers, the fascia with 0 Vicryl interrupted suture, skin with 4-0 Monocryl, and dry sterile dressing was applied. The patient tolerated the procedure well. Counts of instrument and gauze were correct. There were no apparent complications. The patient was extubated in OR and sent to the postanesthesia care unit in stable condition. Gerald Sena MD
== END 2018-07-15 21:15 | disposition home or self-care (01) | DRG 419 ==
LOC: C.ER 13:18 → C.9E 17:37 → C.6T 23:08 → OBSVTOIN 07-12 12:21
PROVIDERS: ADMIT Internal Medicine Nephrology; ATTEND Internal Medicine Nephrology
PROC: 8E0W4CZ Robotic Assisted Procedure of Trunk Region, Percutaneous Endoscopic Approach (ICD-10-PCS; 2018-07-14)
PROC: 0F944ZZ Drainage of Gallbladder, Percutaneous Endoscopic Approach (ICD-10-PCS; 2018-07-14)
PROC: 0FT44ZZ Resection of Gallbladder, Percutaneous Endoscopic Approach (ICD-10-PCS; principal; 2018-07-14 12:15)
DX: K80.66 Calculus of gallbladder and bile duct with acute and chronic cholecystitis without obstruction (principal); K82.8 Other specified diseases of gallbladder; F10.129 Alcohol abuse with intoxication, unspecified; K59.00 Constipation, unspecified; J45.909 Unspecified asthma, uncomplicated; G43.909 Migraine, unspecified, not intractable, without status migrainosus; Z90.49 Acquired absence of other specified parts of digestive tract